=== PATIENT | female | born 1945 | race Caucasian/White ===

== ENCOUNTER 2025-06-09 18:00 | Inpatient (IN) | payer MEDICARE, OTHER, SELFPAY ==
[2025-06-09 09:56] VITALS: BP 160/77
[2025-06-09 11:12] LABS: Hematocrit 36.1 % (37.0-47.0); Hemoglobin 12.0 g/dL (12.0-16.0); Mean Corp Hgb Conc. 33.2 g/dL (33.0-37.0); Mean Corpuscular Volume 92.1 fL (81.0-99.0); Nucleated Red Blood Cells % 0 %; Red Cell Dist. Width 12.6 % (11.5-14.5)
[2025-06-09 11:31] LABS: ALT (SGPT) 22 U/L (0-35); AST (SGOT) 28 U/L (14-36); Albumin 4.3 g/dl (3.5-5.0); Alkaline Phosphatase 82 U/L (38-126); Blood Urea Nitrogen 22 mg/dl (7-17); Calcium 9.4 mg/dl (8.4-10.2); Carbon Dioxide 27 mmol/L (22-30); Chloride 109 mmol/L (98-107); Glucose 104 mg/dl (70-99); Lipase 71 U/L (23-300); Potassium 4.5 mmol/L (3.5-5.1); Sodium 142 mmol/L (135-145); Total Protein 7.2 g/dl (6.3-8.2); eGFR > 60.00
--- NOTE | 2025-06-09 11:36 | ED.GENMED ---
History of Present Illness
<Josh Vick PA-C - Last Filed: 06/09/25 16:12>
General
Chief Complaint: Abdominal Pain
Time Seen by Provider: 06/09/25 11:19
History of Present Illness
History of Present Illness:
71-year-old female with history of hypertension and hyperlipidemia presents for evaluation of upper abdominal pain and acid reflux that has been ongoing for the past 3 weeks. States she began taking Pepcid and had difficulty falling asleep when
lying flat. Followed up with her primary care physician was placed on omeprazole last week without improvement. Had an ultrasound completed 2 days ago that showed numerous lesions on her liver and pancreas concerning for metastatic disease and a
CT scan was recommended. She has not reviewed the CT results with her primary care physician yet to decide what to do. Denies any fevers or chills. Prior abdominal surgical history includes partial hysterectomy and ovarian cystectomy. Pain is
minimal at present.
Review of Systems
<Josh Vick PA-C - Last Filed: 06/09/25 16:12>
Review of Systems
Allergies reviewed?: Yes
All Other Systems: ROS reviewed and negative except as documented in HPI and ROS
Phy Exam
<Josh Vick PA-C - Last Filed: 06/09/25 16:12>
Physical Exam
Physical Exam:
GEN: Well appearing, NAD, WDWN
HEENT: Oral mucosa moist, no scleral icterus
Cardiac: Regular rate
Lung: No respiratory distress, no tachypnea
Abdomen: Soft, grossly nontender, no palpable mass
MSK: No gross deformity or injuries
Skin: Good color, no pallor or jaundice, no rashes
Neuro: AO x3, moves all extremities freely
Psych: Calm, cooperative
Course
<Josh Vick PA-C - Last Filed: 06/09/25 16:12>
Orders/Labs/Results
Orders:
Orders
06/09/25 10:56
Complete Blood Count/With Diff Urgent
Comprehensive Metabolic Panel Urgent
Lipase Urgent
06/09/25 11:23
Urinalysis Reflex To Culture Urgent
Date Specimen was Collected: 06/09/25
Time Specimen was Collected: 11:20
Urine Microscopic Reflex Cult Urgent
Urine Culture Urgent
BRANDO Source: U
Specimen Description:
Obtained by: Random
Date Specimen was Collected: 06/09/25
Time Specimen was Collected: 11:20
06/09/25 11:37
CT Abd/Pel (IV only)-DH only Urgent
Comment:
Reason For Exam: upper abd pain, pancreatic/hepatic masses on US
06/09/25 14:39
Admit Patient As Directed
Co-Sign Provider:
Level of Care: Inpatient admission
Assign to:: Medical/Surgical
Physician / Group: Hospital medicine
Diagnosis: Pancreatic mass, and splenic vein occlusion
Reason for Hospitalization: Pancreatic mass
Expected length of stay greater than two midnights?: Yes
ELOS- Estimated Length of Stay in days: 2
I certify the patient meets the requirements for IP care: Yes
Reason for Overnight Stay: Standard of Care
06/09/25 14:42
PRN Pain Medication Management As Directed
May give lesser potent ordered pain med per pt: Yes
preference::
Protocol:: Medication orders for pain may be administered in a
manner that supports deferring to patient preference
when the pt is:
- Requesting an ordered lesser potent pain medication.
Least to most potent pain medications are defined
as: acetaminophen < NSAID < tramadol < opioids
(morphine, oxycodone, hydromorphone).
- Requesting a lesser dose of the same medication IF
ORDERED.
- Requesting a less intrusive route of administration
if both routes are prescribed by the provider (PO <
IV).
06/09/25 14:52
GASTROINTESTINAL CONSULT Routine
Consulting Provider: Sherry Villa
Was physician already notified: Yes
Reason for consult: Pancreatic mass
DX Deep Vein Thrombosis Video Routine
06/09/25 Dinner
Regular
Metoprolol Xl [Toprol Xl] 25 mg PO DAILY
06/09/25 15:05
DX Deep Vein Thrombosis Video Routine
06/09/25 15:09
Admit/Transfer Patient As Directed
Co-Sign Provider:
Level of Care: Inpatient admission
Assign to:: Medical/Surgical
Physician / Group: Hospital medicine
Diagnosis: Pancreatic mass, and splenic vein occlusion
Reason for Hospitalization: Pancreatic mass work up
Expected length of stay greater than two midnights?: Yes
ELOS- Estimated Length of Stay in days: 3
I certify the patient meets the requirements for IP care: Yes
Reason for Overnight Stay: Standard of Care
06/09/25 15:10
PRN Pain Medication Management As Directed
May give lesser potent ordered pain med per pt: Yes
preference::
Protocol:: Medication orders for pain may be administered in a
manner that supports deferring to patient preference
when the pt is:
- Requesting an ordered lesser potent pain medication.
Least to most potent pain medications are defined
as: acetaminophen < NSAID < tramadol < opioids
(morphine, oxycodone, hydromorphone).
- Requesting a lesser dose of the same medication IF
ORDERED.
- Requesting a less intrusive route of administration
if both routes are prescribed by the provider (PO <
IV).
06/09/25 16:00
Flush (0.9% Sodium Chloride) [Flush (Nss)] See Dose Instructions IV PER PROTOCOL
06/09/25 18:00
Atorvastatin [Lipitor] 20 mg PO QPM
06/09/25 20:00
Heparin 5,000 units SC Q12
Valsartan [Diovan] 80 mg PO BID
06/09/25 22:00
Latanoprost [Xalatan Ophthalmic Solution] 1 drop BOTH EYES HS
06/10/25 08:00
Pantoprazole [Protonix] 40 mg PO DAILY
Abnormal Lab Results
06/09/25 06/09/25
10:56 11:23
RBC 3.92 L 10^6/uL
(4.20-5.40)
Hct 36.1 L %
(37.0-47.0)
Plt Count 93 L 10^3/uL
(130-400)
MPV 12.1 H fL
(7.4-10.4)
Absolute Lymphs (auto) 0.9 L 10^3/uL
(1.2-3.4)
Lymphocytes % 17.6 L %
(20.5-51.1)
Chloride 109 H mmol/L
(98-107)
BUN 22 H mg/dl
(7-17)
Glucose 104 H mg/dl
(70-99)
Urine Ketones 1+ A
(Negative)
Leukocyte Esterase Rfl 1+ A
(Negative)
Urine Bacteria (Reflex) Few A
(Negative)
06/09/25 10:56
06/09/25 10:56
Vital Signs
Initial and Last Documented VS:
Initial Vital Signs
Temp Pulse Resp BP Pulse Ox
98.6 F 85 16 160/77 100
06/09/25 09:56 06/09/25 09:56 06/09/25 09:56 06/09/25 09:56 06/09/25 09:56
Last Documented Vital Signs
Temp Pulse Resp BP Pulse Ox
98.6 F 88 18 155/72 99
06/09/25 09:56 06/09/25 12:22 06/09/25 12:22 06/09/25 12:22 06/09/25 12:22
<Armani Rae, DO - Last Filed: 06/09/25 14:51>
Orders/Labs/Results
Orders:
Orders
06/09/25 10:56
Complete Blood Count/With Diff Urgent
Comprehensive Metabolic Panel Urgent
Lipase Urgent
06/09/25 11:23
Urinalysis Reflex To Culture Urgent
Date Specimen was Collected: 06/09/25
Time Specimen was Collected: 11:20
Urine Microscopic Reflex Cult Urgent
Urine Culture Urgent
BRANDO Source: U
Specimen Description:
Obtained by: Random
Date Specimen was Collected: 06/09/25
Time Specimen was Collected: 11:20
06/09/25 11:37
CT Abd/Pel (IV only)-DH only Urgent
Comment:
Reason For Exam: upper abd pain, pancreatic/hepatic masses on US
06/09/25 14:39
Admit Patient As Directed
Co-Sign Provider:
Level of Care: Inpatient admission
Assign to:: Medical/Surgical
Physician / Group: Hospital medicine
Diagnosis: Pancreatic mass, and splenic vein occlusion
Reason for Hospitalization: Pancreatic mass
Expected length of stay greater than two midnights?: Yes
ELOS- Estimated Length of Stay in days: 2
I certify the patient meets the requirements for IP care: Yes
Reason for Overnight Stay: Standard of Care
06/09/25 14:42
PRN Pain Medication Management As Directed
May give lesser potent ordered pain med per pt: Yes
preference::
Protocol:: Medication orders for pain may be administered in a
manner that supports deferring to patient preference
when the pt is:
- Requesting an ordered lesser potent pain medication.
Least to most potent pain medications are defined
as: acetaminophen < NSAID < tramadol < opioids
(morphine, oxycodone, hydromorphone).
- Requesting a lesser dose of the same medication IF
ORDERED.
- Requesting a less intrusive route of administration
if both routes are prescribed by the provider (PO <
IV).
06/09/25 14:52
GASTROINTESTINAL CONSULT Routine
Consulting Provider: Sherry Villa
Was physician already notified: Yes
Reason for consult: Pancreatic mass
DX Deep Vein Thrombosis Video Routine
06/09/25 Dinner
Regular
Metoprolol Xl [Toprol Xl] 25 mg PO DAILY
06/09/25 15:05
DX Deep Vein Thrombosis Video Routine
06/09/25 15:09
Admit/Transfer Patient As Directed
Co-Sign Provider:
Level of Care: Inpatient admission
Assign to:: Medical/Surgical
Physician / Group: Hospital medicine
Diagnosis: Pancreatic mass, and splenic vein occlusion
Reason for Hospitalization: Pancreatic mass work up
Expected length of stay greater than two midnights?: Yes
ELOS- Estimated Length of Stay in days: 3
I certify the patient meets the requirements for IP care: Yes
Reason for Overnight Stay: Standard of Care
06/09/25 15:10
PRN Pain Medication Management As Directed
May give lesser potent ordered pain med per pt: Yes
preference::
Protocol:: Medication orders for pain may be administered in a
manner that supports deferring to patient preference
when the pt is:
- Requesting an ordered lesser potent pain medication.
Least to most potent pain medications are defined
as: acetaminophen < NSAID < tramadol < opioids
(morphine, oxycodone, hydromorphone).
- Requesting a lesser dose of the same medication IF
ORDERED.
- Requesting a less intrusive route of administration
if both routes are prescribed by the provider (PO <
IV).
06/09/25 16:00
Flush (0.9% Sodium Chloride) [Flush (Nss)] See Dose Instructions IV PER PROTOCOL
06/09/25 18:00
Atorvastatin [Lipitor] 20 mg PO QPM
06/09/25 20:00
Heparin 5,000 units SC Q12
Valsartan [Diovan] 80 mg PO BID
06/09/25 22:00
Latanoprost [Xalatan Ophthalmic Solution] 1 drop BOTH EYES HS
06/10/25 08:00
Pantoprazole [Protonix] 40 mg PO DAILY
Abnormal Lab Results
06/09/25 06/09/25
10:56 11:23
RBC 3.92 L 10^6/uL
(4.20-5.40)
Hct 36.1 L %
(37.0-47.0)
Plt Count 93 L 10^3/uL
(130-400)
MPV 12.1 H fL
(7.4-10.4)
Absolute Lymphs (auto) 0.9 L 10^3/uL
(1.2-3.4)
Lymphocytes % 17.6 L %
(20.5-51.1)
Chloride 109 H mmol/L
(98-107)
BUN 22 H mg/dl
(7-17)
Glucose 104 H mg/dl
(70-99)
Urine Ketones 1+ A
(Negative)
Leukocyte Esterase Rfl 1+ A
(Negative)
Urine Bacteria (Reflex) Few A
(Negative)
06/09/25 10:56
06/09/25 10:56
Vital Signs
Initial and Last Documented VS:
Initial Vital Signs
Temp Pulse Resp BP Pulse Ox
98.6 F 85 16 160/77 100
06/09/25 09:56 06/09/25 09:56 06/09/25 09:56 06/09/25 09:56 06/09/25 09:56
Last Documented Vital Signs
Temp Pulse Resp BP Pulse Ox
98.6 F 88 18 155/72 99
06/09/25 09:56 06/09/25 12:22 06/09/25 12:22 06/09/25 12:22 06/09/25 12:22
<Josh Vick PA-C - Last Filed: 06/09/25 16:12>
MDM/Problems Addressed
MDM/Problems Addressed:
Unclear etiology to the patient's pain at this time however unfortunately imaging reveals findings highly suspicious for pancreatic malignancy. Will admit her to the medicine service for GI consultation and further diagnostic workup
<Josh Vick PA-C - Last Filed: 06/09/25 16:12>
*Pulse Oximetry
SaO2: 100
Oxygen Mode of Delivery: Room air
Patient hypoxic: no
*Critical Care Note
Total Time (30-74mins, 75-104mins- exclusive of procedures): Not Applicable
ED Attending Note
<Josh Vick PA-C - Last Filed: 06/09/25 16:12>
-
Portions of this chart may have been created with voice recognition software.� Occasional wrong word or��sound alike� substitutions may have occurred due to the inherent limitations of voice recognition software.
<Armani Rae DO - Last Filed: 06/09/25 14:51>
ED Attending Note
Patient seen and examined by attending physician: Yes
I performed the substantive portion of visit, reviewed & personally made and approve the management plan that is documented in note by myself or LINA.: Yes
ED Attending Note:
Seen with PA examined independently agree with assessment and plan 79-year-old female with dyspepsia seen by PCP had increased dose of her PPI, ultrasound showed a likely pancreatic mass, patient has been unable to get a hold of her PCP or the
covering physicians, to get a plan of care thus she came to the ER here she looks well she does not have any jaundice minimal pain, I agree with plan to admit her for facilitated workup
Discharge Plan
Departure
Patient Disposition: Admit
Date of Disposition: 06/09/25
Time of Disposition: 13:31
Admit to: Med/Surg
Presentation/result/management discussed w/ accepting MD/DO: Hospitalist
Discharge Problem:
Mass of pancreas
Prescriptions:
No Action
latanoprost 0.005 % Drops
1 drp BOTH EYES HS
atorvastatin [Lipitor] 20 mg Tablet
20 mg PO QPM
omeprazole 40 mg Capsule,Delayed Release(Dr/Ec)
40 mg PO DAILY
metoprolol succinate [Toprol XL] 25 mg Tablet Extended Release 24 Hr
25 mg PO DAILY
valsartan 160 mg Tablet
80 mg PO BID
Centrum MultiGummies 80 mcg Tablet,Chewable
1 tab PO DAILY
Referrals:
Shelton Bentley MD [Family Provider, Family Practice]
Interventions
Interventions:
*Risk Screen - Suicide Last Done: 06/09/25 09:56
*General Assessment Last Done: 06/09/25 09:56
*Neglect/Abuse Screening Last Done: 06/09/25 11:51
YJ-Oultec-Kknfgvklrg Assessment Last Done: 06/09/25 11:49
Discharge Date and Time
Print Language: BURUNDIAN
[2025-06-09 12:22] VITALS: BP 155/72
[2025-06-09 12:28] LABS: Urine Character Clear (Clear)
[2025-06-09 12:40] LABS: Urine Squamous Cell 16-20 /LPF (Few)
[2025-06-09 12:41] LABS: Urine Red Blood Cell 0-2 /HPF (0-2)
[2025-06-09 13:15] LABS: Platelet Count 93 10^3/uL (130-400)
--- NOTE | 2025-06-09 14:54 | HPS.HSE ---
Addendum entered and electronically signed by Ovi Harp MD 06/09/25 15:44:
This is an addendum to H&P written by Maranda Montemayor on 06/09/2025. �Patient seen and examined independently with resident.
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 �Difficulty falling asleep and lying flat. �Started omeprazole without improvement.
�An ultrasound 2 days ago showed numerous lesions of the liver and pancreas concerning for metastatic disease and CT scan was recommended. �No fevers or chills.
Vital signs unremarkable.
Labs unremarkable. �Urinalysis unremarkable.
CT abdomen pelvis shows 3 cm mass in the body of the pancreas, highly suspicious for pancreatic adenocarcinoma. �Severe atrophy and main ductal dilatation of the pancreas distal to the mass. �Occlusion of the proximal splenic vein narrowing of the
superior mesenteric vein at the level of the mass. �Also concerning for liver metastasis.
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
N.p.o. Past midnight for potential endoscopic US and biopsy.� Heparin for DVT prophylaxis, will likely need to start Eliquis after endoscopy.�
Original Note:
Family Physician
-
Family Physician: Shelton Bentley
Chief Complaint
-
Intermittent abdominal pain
History of Present Illness
71-year-old female with PMHx significant for hypertension, glaucoma, hyperlipidemia presents to the hospital for intermittent abdominal pain and acid reflux for the past 3 weeks. Patient states that about 3 weeks ago she started having sour
metallic taste into the mouth after eating food, along with food refluxing into her mouth several times immediately after eating her meals, and bloating, burning sensation in her epigastrium with associated epigastric discomfort for the last 3
weeks. As her primary care physician was out, she tried to take [id number] Pepcid with no relief in the symptoms. Her epigastric discomfort was intermittent, nonradiating, dull, worsened when she lie down flat, she has to find a comfortable
position to sleep but then she would wake up in the middle of the night from her epigastric discomfort. About 1 week ago, she went to see her primary care physician who prescribed omeprazole, and her symptoms did not improve with omeprazole. So
she went for a follow-up on Saturday, and an ultrasound was ordered which showed evidence for liver metastasis. Patient brought herself into the ER as she has not reviewed her results with PCP yet.
She denies having any nausea, vomiting, diarrhea, constipation, fresh blood in the stool.
She admits to having bloating and belching in her stomach.
Medical History
Past Medical History
Past Medical History: Reports Other (Hypertension, hyperlipidemia, glaucoma.)
Past Surgical History: Reports Other (C-sections x 2, total abdominal hysterectomy.)
Social History
Tobacco: Non-smoker
Alcohol: None
Drug: None
Personal:
Living: With Family
Employment: Retired
Family History
Family History: Other (Brother with pancreatic cancer.)
Allergies / Home Medications
Allergies reflects when Allergies were last updated in [facility] [employer] [facility].
Home Medications with original date entered in [employer] [facility]
Allergy/Medication List:
Allergies
Allergy/AdvReac Type Severity Reaction Status Date / Time
Penicillins Allergy reaction Verified 06/09/25 09:56
when young
Home Medications
atorvastatin 20 mg tablet (Lipitor) 20 mg PO QPM 06/09/25
latanoprost 0.005 % eye drops 1 drp BOTH EYES HS 06/09/25
metoprolol succinate 25 mg tablet,extended release 24 hr (Toprol XL) 25 mg PO DAILY 06/09/25
multivitamin with minerals-folic acid 80 mcg chewable tablet 1 tab PO DAILY 06/09/25
omeprazole 40 mg capsule,delayed release 40 mg PO DAILY 06/09/25
valsartan 160 mg tablet 80 mg PO BID 06/09/25
Review of Systems
-
History Source: Patient
A 12 point ROS was completed and negative except as noted: No
Constitutional: Reports Fatigue
EENT: Reports No Symptoms
Respiratory: Reports No Symptoms
Cardiac: Reports No Symptoms
Abdomen/GI: Reports Abdominal Pain and Other (Acid reflux, bloating.)
: Reports No Symptoms
Musculoskeletal: Reports No Symptoms
Skin: Reports No Symptoms
Neurological: Reports No Symptoms
Endocrine: Reports No Symptoms
Hematologic/Lymphatic: Reports No Symptoms
Psych: Reports No Symptoms
Physical Exam
Vital Signs
Vital Signs
Temp Pulse Resp BP Pulse Ox
98.6 F 88 18 155/72 99
06/09/25 09:56 06/09/25 12:22 06/09/25 12:22 06/09/25 12:22 06/09/25 12:22
Physical Exam
General: No Apparent Distress and Comfortable
HEENT: Anicteric and Moist mucous membranes
Respiratory: Clear; No Wheezes, Rales, Rhonchi or Crackles
Cardiac: S1/S2 and Regular Rhythm; No Murmur, Rub or Gallop
GI: Soft, Non Tender, Non Distended, Normal Bowel Sounds and No Hepatosplenomegaly
Genito-urinary: Deferred by me
Musculoskeletal: No Clubbing, No Cyanosis and No Edema
Skin: Warm
Neuro: AO x 3 and No Motor Deficits
Psych: Calm
Laboratory Results
-
06/09/25 10:56
06/09/25 10:56
Laboratory Results
Total Bilirubin 0.9 mg/dl (0.2-1.3) 06/09/25 10:56
AST 28 U/L (14-36) 06/09/25 10:56
ALT 22 U/L (0-35) 06/09/25 10:56
Alkaline Phosphatase 82 U/L (38-126) 06/09/25 10:56
Lipase 71 U/L (23-300) 06/09/25 10:56
Data Reviewed
-
CT Scan: Image Personally Visualized and interpreted, Report Reviewed by me, Discussed with Physician, Discussed with Patient and Discussed with Family
Lab Data: Labs Reviewed by me, Discussed with Physician, Discussed with Patient and Discussed with Family
Impression/Plan
-
IMPRESSION:
79-year-old female with PMHx significant for hypertension, hyperlipidemia, glaucoma presents to the hospital for intermittent abdominal pain-diagnosed with a pancreatic mass highly suspicious for pancreatic adenocarcinoma with liver metastasis. She
is being admitted for further workup.
PLAN:
# Pancreatic mass-
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
'CT abdomen/pelvis with IV contrast- 3 cm mass in the body of the pancreas, highly suspicious for pancreatic adenocarcinoma. Severe atrophy and main ductal dilatation in the pancreas distal to the mass. Occlusion of the proximal splenic vein and
narrowing of the superior mesenteric vein at the level of the mass.
At least four hypoattenuating hepatic foci likely represent hepatic metastases'.
GI consulted, on board.
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
Currently patient asymptomatic, no focal weakness or syncopal episodes.
Defer to GI for anticoagulation.
#Essential hypertension-
Continue Toprol-XL and valsartan 80 twice daily
#Hyperlipidemia-
Continue atorvastatin.
#Glaucoma-
Continue latanoprost.
#DVT prophylaxis-
Heparin subcu.
#CODE STATUS-
Full code.
[2025-06-09] MEDS: TOPROL XL 25 MG PO (16:37)
[2025-06-09 16:55] VITALS: BP 145/71
[2025-06-09 18:02] VITALS: BP 164/84
[2025-06-09] MEDS: LIPITOR 20 MG PO (18:09)
[2025-06-09 18:34] VITALS: BMI 25.4
--- NOTE | 2025-06-09 19:28 | PTCARENOTE ---
received pt to 3W from ED approx 1800. VS obtained, oriented to room, nursing assessment complete, call larkin within reach, no c/o pain, bed in lowest position
[2025-06-09] MEDS: HEPARIN 5000 UNITS SC (20:23)
[2025-06-09] MEDS: DIOVAN 80 MG PO (20:23)
--- NOTE | 2025-06-09 20:34 | PTCARENOTE ---
Rn review coordinator-Admission nursing assessment conpleted via phone interview.
[2025-06-09] MEDS: XALATAN OPHTHALMIC SOLUTION 1 DROP BOTH EYES (22:59)
[2025-06-09 23:17] VITALS: BP 145/72
[2025-06-10] VITALS (9 sets, daily range): BP systolic 76–171; BP diastolic 64–82
[2025-06-10] MEDS: PROTONIX 40 MG PO (07:42)
[2025-06-10] MEDS: HEPARIN 5000 UNITS SC ×2 (07:42→20:10)
[2025-06-10] MEDS: TOPROL XL 25 MG PO (07:43)
[2025-06-10] MEDS: DIOVAN 80 MG PO ×2 (07:45→20:05)
--- NOTE | 2025-06-10 08:40 | W.PN.UPDATE ---
Update Note
Progress Note Update
reviewed imaging with Dr. aKy with no signs of biliary obstruction and panc body mass consider IR and oncology evaluation for liver biopsy. Reviewed with .
[2025-06-10 10:08] LABS: INR 0.95; PT 13.1 Sec (11.4-14.6)
--- NOTE | 2025-06-10 10:09 | CON.ONC ---
Consultation
-
Date Consultation Requested: 06/10/25
Date Consultation Performed: 06/10/25
Performing Provider: Dr. Alex Garcia
Reason for Consultation: CT showing mass in body of pancreas and liver lesions
Impression
Impression
# Pancreatic mass -likely to be pancreatic adenocarcinoma
# Liver lesions
CT abdomen/pelvis: 3 cm mass in the body of pancreas, highly suspicious for pancreatic adenocarcinoma. Severe atrophy and main ductal dilatation of the pancreas distal to the mass. 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
superior mesenteric vein at the level of the mass. At least 4 hypoattenuating hepatic foci likely representing hepatic metastasis.
- Will order CA 19-9
- Patient does not have weight loss or decreased appetite, suspect atypical pancreatic cancer.
- Recommend liver biopsy to confirm diagnosis of metastatic cancer.
- May benefit from outpatient genetic testing of BRCA2 mutation given history of pancreatic cancer in brother.
- Recommend outpatient PET scan.
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
Plan
Plan
Ca 19-9
Liver biopsy to confirm diagnosis of metastatic pancreatic cancer
Outpatient PET, and genetic testing for BRCA2 mutation given history of pancreatic ca in brother
Patient History
History of Present Illness
Patient is a 71-year-old female with a past medical history of hypertension, hyperlipidemia who presented to the ED after abnormal imaging results. Patient had been having intermittent, dull epigastric pain that radiates to the back for the past 3
weeks with associated acid reflux, bloating, belching, and sour metallic taste in the mouth. Patient tried taking [id number] Pepcid with no relief of symptoms, and eventually was prescribed omeprazole which also did not provide relief. Her
outpatient ultrasound showed evidence for liver metastasis, which prompted the ER visit. Patient denies nausea, vomiting, diarrhea, constipation, weight loss and decreased appetite.
Past-Medical/Surgical History
Family history significant for pancreatic cancer in brother.
Patient Medication
�Medication �Instructions �Recorded �Confirmed �Last Taken �Type
atorvastatin 20 mg tablet (Lipitor) 20 mg PO QPM 06/09/25 06/09/25 06/08/25 History
latanoprost 0.005 % eye drops 1 drp BOTH EYES HS 06/09/25 06/09/25 06/08/25 History
metoprolol succinate 25 mg 25 mg PO DAILY 06/09/25 06/09/25 06/08/25 History
tablet,extended release 24 hr
(Toprol XL)
multivitamin with minerals-folic 1 tab PO DAILY 06/09/25 06/09/25 06/08/25 History
acid 80 mcg chewable tablet
omeprazole 40 mg capsule,delayed 40 mg PO DAILY 06/09/25 06/09/25 06/08/25 History
release
valsartan 160 mg tablet 80 mg PO BID 06/09/25 06/09/25 06/08/25 History
Active Medications
Generic Name Dose Route Start Last Admin
Trade Name Freq PRN Reason Stop Dose Admin
Atorvastatin Calcium 20 mg 06/09/25 18:00 06/09/25 18:09
Atorvastatin (Lipitor) 20 Mg Tablet PO 07/07/25 17:59 20 mg
QPM MIGUEL Administration
Heparin Sodium 5,000 units 06/09/25 20:00 06/10/25 07:42
Heparin 5,000 Units/Ml 1 Ml Vial SC 07/07/25 19:59 5,000 units
Q12 MIGUEL Administration
Latanoprost 1 drop 06/09/25 22:00 06/09/25 22:59
Latanoprost 0.005% (Ophthalmic Solution) 2.5 Ml Bottle BOTH EYES 07/07/25 21:59 1 drop
HS MIGUEL Administration
Metoprolol Succinate 25 mg 06/09/25 15:00 06/10/25 07:43
Metoprolol 25 Mg Extended Release Tablet PO 07/07/25 14:59 25 mg
DAILY MIGUEL Administration
Pantoprazole Sodium 40 mg 06/10/25 08:00 06/10/25 07:42
Pantoprazole 40 Mg Delayed Release Tablet PO 07/08/25 07:59 40 mg
DAILY MIGUEL Administration
Sodium Chloride 0 flush 06/09/25 16:00
Sodium Chloride 0.9% (Flush) Syringe IV 07/07/25 15:59
PER PROTOCOL MIGUEL
Valsartan 80 mg 06/09/25 20:00 06/10/25 07:45
Valsartan 160 Mg Tablet PO 07/07/25 19:59 80 mg
BID MIGUEL Administration
Review of Systems
-
History Source: Patient
Constitutional: Reports No Symptoms
EENT: Reports No Symptoms
Respiratory: Reports No Symptoms
Cardiac: Reports No Symptoms
GI: Reports Abdominal Pain, Bloated and Indigestion
Breast: Reports No Symptoms
: Reports No Symptoms
Musculoskeletal: Reports No Symptoms
Neuro: Reports No Symptoms
Endocrine: Reports No Symptoms
Hematologic/Lymphatic: Reports No Symptoms
Allergy / Immunology: Reports No Symptoms
Psych: Reports No Symptoms
Physical Exam
-
General: Well Developed, Well Nourished, No Apparent Distress, Comfortable and Conversant
HEENT: Jaundice and Moist Mucous Membranes
Pulmonary: Clear
GI: Soft, Normal Bowel Sounds and No Organomegaly
Musculoskeletal: No Clubbing and No Cyanosis
Skin: Warm
Psych: Calm
Labs
Lab Results
WBC 5.2 10^3/uL (4.8-10.8) 06/09/25 10:56
RBC 3.92 10^6/uL (4.20-5.40) L 06/09/25 10:56
Hgb 12.0 g/dL (12.0-16.0) 06/09/25 10:56
Hct 36.1 % (37.0-47.0) L 06/09/25 10:56
MCV 92.1 fL (81.0-99.0) 06/09/25 10:56
MCH 30.6 pg (27.0-31.0) 06/09/25 10:56
MCHC 33.2 g/dL (33.0-37.0) 06/09/25 10:56
RDW 12.6 % (11.5-14.5) 06/09/25 10:56
Plt Count 93 10^3/uL (130-400) L 06/09/25 10:56
MPV 12.1 fL (7.4-10.4) H 06/09/25 10:56
Abs Immat Gran (auto) 0.0 10^3/uL (0-0.05) 06/09/25 10:56
Absolute Neuts (auto) 3.8 10^3/uL (1.4-6.5) 06/09/25 10:56
Absolute Lymphs (auto) 0.9 10^3/uL (1.2-3.4) L 06/09/25 10:56
Absolute Monos (auto) 0.4 10^3/uL (0.1-0.6) 06/09/25 10:56
Absolute Eos (auto) 0.0 10^3/uL (0-0.7) 06/09/25 10:56
Absolute Basos (auto) 0.0 10^3/uL (0-0.2) 06/09/25 10:56
Immature Gran % 0.2 % (0-0.5) 06/09/25 10:56
Neutrophils % 73.3 % (42.2-75.2) 06/09/25 10:56
Lymphocytes % 17.6 % (20.5-51.1) L 06/09/25 10:56
Monocytes % 7.5 % (1.7-9.3) 06/09/25 10:56
Eosinophils % 0.8 % (0-6) 06/09/25 10:56
Basophils % 0.6 % (0-2) 06/09/25 10:56
Creatinine Cancelled 06/10/25 18:00
Vital Signs
Vital Signs
Temp Pulse Resp BP Pulse Ox
98.4 F 68 16 133/71 98
06/10/25 07:00 06/10/25 07:00 06/10/25 07:00 06/10/25 07:00 06/10/25 07:00
--- NOTE | 2025-06-10 10:38 | W.PN.HOSP.TC ---
Today's Communication/Plan
-
IR liver biopsy. Oncology eval
Assessment / Plan
Assessment / Plan
Physical exam:
General: Acute on chronically ill
HEENT: Normocephalic, Atraumatic and Moist Mucous Membranes
Respiratory: Clear to Auscultation; Negative Wheezes, Rales or Rhonchi
Cardiac: Regular Rhythm and S1/S2
GI: Soft, Nontender and Nondistended
Musculoskeletal: No Clubbing, No Cyanosis and No Edema
Neuro: Awake, Alert and Oriented, no neurodeficit
Psych: Calm
A/P:
Pancreatic mass:
Likely malignancy, suspected metastatic pancreatic adenocarcinoma
Cancel GI consult since no evidence of biliary tree obstruction
Oncology consult
Liver masses:
Likely metastatic disease
IR consult for biopsy
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
No need for anticoagulation at the moment
I also reached out to vascular surgery and there is no role for them to be involved.
Hypertension:
Continue antihypertensive
Hyperlipidemia:
Continue statin
DVT prophylaxis-
Heparin subcu.
CODE STATUS-
Full code.
Total time spent on today's encounter was 55 minutes which included time spent in counseling the patient/family regarding diagnosis and treatment plan as listed above, goals of care, and symptom management. Case was discussed with nursing staff,
specialists, and care coordinators/case management. All labs and imaging personally reviewed by me. Remainder the time spent in detailed review of previous records, lab data, imaging, and other medical provider documentation.
Anticipated Discharge: Within 24 hours
Subjective/Interval History
-
Date of Service: June 10, 2025
Patient complains of abdominal pain on and off. No fever. No chest pain or shortness of breath today
Objective Data
-
Labs:
Laboratory Results
06/10/25 06/10/25
09:41 18:00
PT 13.1
INR 0.95
Sodium Cancelled
Potassium Cancelled
Chloride Cancelled
Carbon Dioxide Cancelled
BUN Cancelled
Creatinine Cancelled
Glucose Cancelled
Calcium Cancelled
Vital Signs:
Vital Signs
Temp Pulse Resp BP Pulse Ox
98.4 F 68 16 133/71 98
06/10/25 07:00 06/10/25 07:00 06/10/25 07:00 06/10/25 07:00 06/10/25 07:00
--- NOTE | 2025-06-10 11:50 | CM ---
Patient seen at bedside
IA completed
dx: pancreatic mass
past medical history of hypertension, hyperlipidemia
Lives in a split level home with and son, 1 JONATHAN, 7 steps to bed/bath
PLOF: independent, no device
DME in home: Walker, cane, wheelchair, shower chair
Denies VN/Rehab
PCP: Shelton Bentley
Pharmacy: [facility]
PLAN: home, no needs anticipated when stable, CM to continue to follow for discharge planning/needs
[2025-06-10] MEDS: LIPITOR 20 MG PO (17:26)
[2025-06-10] MEDS: XALATAN OPHTHALMIC SOLUTION 1 DROP BOTH EYES (21:55)
[2025-06-11 07:00] VITALS: BP 145/76
[2025-06-11 07:11] LABS: Hematocrit 34.1 % (37.0-47.0); Hemoglobin 11.4 g/dL (12.0-16.0); Mean Corp Hgb Conc. 33.4 g/dL (33.0-37.0); Mean Corpuscular Volume 90.9 fL (81.0-99.0); Platelet Count 73 10^3/uL (130-400); Red Cell Dist. Width 12.4 % (11.5-14.5)
[2025-06-11 07:40] LABS: Blood Urea Nitrogen 29 mg/dl (7-17); Calcium 8.9 mg/dl (8.4-10.2); Carbon Dioxide 24 mmol/L (22-30); Chloride 109 mmol/L (98-107); Estimated Creatinine Clearance 44 ml/min; Glucose 87 mg/dl (70-99); Potassium 3.9 mmol/L (3.5-5.1); Sodium 140 mmol/L (135-145); eGFR > 60.00
[2025-06-11] MEDS: DIOVAN 80 MG PO (08:05)
[2025-06-11] MEDS: PROTONIX 40 MG PO (08:06)
[2025-06-11] MEDS: TOPROL XL 25 MG PO (08:06)
[2025-06-11] MEDS: HEPARIN 5000 UNITS SC (08:06)
--- NOTE | 2025-06-11 10:32 | W.PN.HOSP.TC ---
Today's Communication/Plan
-
Discharge planning today
Assessment / Plan
Assessment / Plan
Physical exam:
General: No acute distress
HEENT: Normocephalic, Atraumatic and Moist Mucous Membranes
Respiratory: Clear to Auscultation; Negative Wheezes, Rales or Rhonchi
Cardiac: Regular Rhythm and S1/S2
GI: Soft, Nontender and Nondistended
Musculoskeletal: No Clubbing, No Cyanosis and No Edema
Neuro: Awake, Alert and Oriented, no neuro-deficit
Psych: Calm
A/P:
Pancreatic mass:
Likely malignancy, suspected metastatic pancreatic adenocarcinoma
Cancel GI consult since no evidence of biliary tree obstruction
Oncology consult appreciated
Liver masses:
Likely metastatic disease
IR did biopsy yesterday on 06/10--> follow-up results as outpatient with oncology.
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
No need for anticoagulation at the moment
I also reached out to vascular surgery and there is no role for them to be involved.
Hypertension:
Continue antihypertensive
Hyperlipidemia:
Continue statin
DVT prophylaxis-
Heparin subcu.
CODE STATUS-
Full code.
Anticipated Discharge: Today
Subjective/Interval History
-
Date of Service: June 11, 2025
Patient doing well today
Objective Data
-
Labs:
Laboratory Results
06/11/25
06:42
WBC 4.5 L
Hgb 11.4 L
Hct 34.1 L
Plt Count 73 L D
Sodium 140
Potassium 3.9
Chloride 109 H
Carbon Dioxide 24
BUN 29 H
Creatinine 0.8
Glucose 87
Calcium 8.9
Vital Signs:
Vital Signs
Temp Pulse Resp BP Pulse Ox
97.4 F 68 16 145/76 100
06/11/25 07:00 06/11/25 08:05 06/11/25 07:00 06/11/25 08:05 06/11/25 07:00
I&O
06/10/25 06/11/25 06/12/25
06:59 06:59 06:59
Intake Total 580 / 580
Balance 580 / 580
--- NOTE | 2025-06-11 10:33 | W.DCSUMMARY ---
Discharge Summary
Discharge Data
Date of Admission: 06/09/25
Date of Discharge: 06/11/25
-
Pending Results: Yes (Liver biopsy.)
Hospital Course
Patient is 79 years old female with history of hypertension, hyperlipidemia, came into the hospital with abnormal imaging results and abdominal discomfort. Patient was found to have pancreatic mass and liver lesions. Oncology consulted. IR
consulted and she underwent liver biopsy. Patient doing well postprocedure. Patient will need to follow-up liver biopsy results as outpatient with oncology. Should biopsy come back positive for suspicion of pancreatic metastatic cancer then she
will require outpatient PET scan and genetic testing for BRCA2 mutation and so on. Otherwise, patient is hemodynamically stable and afebrile and she is going to be discharged in relatively stable condition today.
Discharge Plan
-
Patient Disposition: Home (Routine Discharge)
Discharge Diagnosis/Procedures: Pancreatic mass highly suspicious for metastatic pancreatic adenocarcinoma.
Diet: Low Cholesterol
Activity: As tolerated
Blood Work: Please PCP to order CBC, BMP within 1 week
Referrals:
Alex Garcia DO [Active, Hematology / Oncology] - in one to two weeks
Shelton Bentley MD [Family Provider, Family Practice] - in less than 1 week
Prescriptions:
Continued
latanoprost 0.005 % Drops
1 drp BOTH EYES HS
atorvastatin [Lipitor] 20 mg Tablet
20 mg PO QPM
omeprazole 40 mg Capsule,Delayed Release(Dr/Ec)
40 mg PO DAILY
metoprolol succinate [Toprol XL] 25 mg Tablet Extended Release 24 Hr
25 mg PO DAILY
valsartan 160 mg Tablet
80 mg PO BID
multivit with min-folic acid 80 mcg Tablet,Chewable
1 tab PO DAILY
Discharge Orders:
Discharge Patient (As Directed); Ordered 06/11/25
Ordered By: Michel Morel
Discharge Date and Time
Print Language: KHMER
[2025-06-11 11:42] VITALS: BP 147/70
--- NOTE | 2025-06-11 12:31 | CM ---
Patient seen at bedside
Discharge today
IMM explained & signed. In chart
PLAN: Home, no needs
to transport
[2025-06-11 22:32] LABS: CA 19-9 4 U/mL (<=35)
== END 2025-06-11 15:00 | disposition home or self-care (01) | DRG 436 ==
LOC: 3 WEST ACU 18:00
PROVIDERS: Emergency Medicine; Radiology Vascular & Interventional Radiology; ADMITTING PHYSICIAN Hospitalist; ATTENDING PHYSICIAN Hospitalist; CONSULT PHYSICIAN Internal Medicine Hematology & Oncology; EMERGENCY PHYSICIAN Emergency Medicine; FAMILY PHYSICIAN Family Medicine
PROC: 0FB13ZX Excision of Right Lobe Liver, Percutaneous Approach, Diagnostic (ICD-10-PCS; 2025-06-10)
DX: C25.9 Malignant neoplasm of pancreas, unspecified (principal); C78.7 Secondary malignant neoplasm of liver and intrahepatic bile duct; I10 Essential (primary) hypertension; E78.5 Hyperlipidemia, unspecified; K21.9 Gastro-esophageal reflux disease without esophagitis; H40.9 Unspecified glaucoma; Z79.899 Other long term (current) drug therapy; Z80.0 Family history of malignant neoplasm of digestive organs; Z90.711 Acquired absence of uterus with remaining cervical stump
CPT/HCPCS: 47000; 74177; 77012; 80048; 80053; 81003; 81015; 83690; 85025; 85027; 85610; 86301; 87086; 88307; 88333; 88341; 88342; 99152; 99153; 99285; Q9967

== ENCOUNTER → 2025-06-23 12:29 | Outpatient (REF) | payer MEDICARE, OTHER, SELFPAY ==
[2025-06-23 12:29] LABS: Glucose 103 mg/dl (70-99)
== END ==
LOC: PET 12:29
PROVIDERS: ATTENDING PHYSICIAN Internal Medicine Hematology & Oncology
DX: C25.2 Malignant neoplasm of tail of pancreas (principal); K86.9 Disease of pancreas, unspecified; K86.89 Other specified diseases of pancreas
CPT/HCPCS: 36415; 82947

== ENCOUNTER → 2025-07-05 12:07 | Outpatient (REF) | payer MEDICARE, OTHER, SELFPAY ==
[2025-07-05 12:20] LABS: Hematocrit 34.3 % (37.0-47.0); Hemoglobin 11.2 g/dL (12.0-16.0); Mean Corp Hgb Conc. 32.7 g/dL (33.0-37.0); Mean Corpuscular Volume 93.2 fL (81.0-99.0); Platelet Count 99 10^3/uL (130-400); Red Cell Dist. Width 12.6 % (11.5-14.5)
[2025-07-05 13:01] LABS: ALT (SGPT) 25 U/L (0-35); AST (SGOT) 27 U/L (14-36); Albumin 4.2 g/dl (3.5-5.0); Alkaline Phosphatase 79 U/L (38-126); Blood Urea Nitrogen 19 mg/dl (7-17); Calcium 9.5 mg/dl (8.4-10.2); Carbon Dioxide 27 mmol/L (22-30); Chloride 109 mmol/L (98-107); Glucose 111 mg/dl (70-99); Potassium 4.4 mmol/L (3.5-5.1); Sodium 143 mmol/L (135-145); Total Protein 7.2 g/dl (6.3-8.2); eGFR > 60.00
== END ==
LOC: OIDL 12:07
PROVIDERS: ATTENDING PHYSICIAN Internal Medicine Hematology & Oncology
DX: C25.2 Malignant neoplasm of tail of pancreas (principal); C78.7 Secondary malignant neoplasm of liver and intrahepatic bile duct; C25.0 Malignant neoplasm of head of pancreas
CPT/HCPCS: 80053; 85025

== ENCOUNTER → 2025-07-06 12:14 | Outpatient (REF) | payer MEDICARE, OTHER, SELFPAY ==
[2025-07-06 12:35] VITALS: BP 135/70; BP_SYST 74
[2025-07-06] MEDS: VANCOCIN 200 IV (13:15)
== END ==
LOC: RADI 12:14
PROVIDERS: ATTENDING PHYSICIAN Internal Medicine Hematology & Oncology; FAMILY PHYSICIAN Family Medicine
DX: C25.2 Malignant neoplasm of tail of pancreas (principal); C78.7 Secondary malignant neoplasm of liver and intrahepatic bile duct
CPT/HCPCS: 36561; 76937; 77001; 99152; 99153; C1788

== ENCOUNTER 2025-07-16 20:32 | Inpatient (IN) | payer MEDICARE, OTHER, SELFPAY ==
[2025-07-16 14:20] VITALS: BP 159/109
--- NOTE | 2025-07-16 15:45 | ED.GENMED ---
History of Present Illness
<Spring Beckett PA-C - Last Filed: 07/16/25 21:43>
General
Chief Complaint: Abdominal Symptoms
Source: patient
Exam Limitations: none
Time Seen by Provider: 07/16/25 15:31
History of Present Illness
History of Present Illness:
79yoF with a history of pancreatic cancer, hypertension, hyperlipidemia presenting for evaluation of diarrhea. Patient just started chemotherapy last week. She follows with Dr. Garcia at [place]. She was initially constipated and saw Dr. Garcia in
the office 2 days ago. She was advised to start MiraLAX. Before she was able to start this, she experienced cramping in her abdomen which was followed by a large amount of diarrhea. Diarrhea has continued since then. She states she is unable to
get to the bathroom fast enough and is going in her underwear. She is passing only a small amount of stool at a time. She has had about 4-5 episodes of diarrhea so far today. She reports continued cramping in her abdomen that worsens just before
a bowel movement. She called the oncology office and was told to go to the ED to obtain a CT scan for concern for possible blockage. She denies any vomiting or fevers. Only prior abdominal surgery is a partial hysterectomy.
Phy Exam
<Spring Beckett PA-C - Last Filed: 07/16/25 21:43>
General Physical Exam
General Presentation: well appearing and no apparent distress
General Skin: warm and dry
General Habitus: normal
General Mental: alert
ENT Exam
ENT Exam: normocephalic
Pulmonary Exam
Pulmonary Exam: no respiratory distress
Gastrointestinal Exam
Gastrointestinal Exam: soft, non distended and other (+Generalized abdominal tenderness. Abdomen soft, non-distended. No rebound or guarding.)
Neurological Exam
Neurological Exam: alert
[place] Coma Scale
Eye Opening: Spontaneous
Verbal Response: Oriented
Motor Response: Obeys Commands
GCS Total Score: 15
Skin Exam
Skin Exam: normal color and warm/dry
Psychiatric Exam
Psychiatric Exam: normal mood/affect
Course
<Spring Beckett PA-C - Last Filed: 07/16/25 21:43>
Orders/Labs/Results
Orders:
Orders
07/16/25 15:16
IV Insert/Care/Rem.- Treatment PRN
07/16/25 15:24
Complete Blood Count/With Diff Urgent
Comprehensive Metabolic Panel Urgent
Lipase Urgent
Magnesium Urgent
Comment: ADD ON
Manual Differential Urgent
07/16/25 15:43
Add On- LAB Urgent
Tests Added?: magnesium
0.9% Sodium Chloride 1000 ml [Nss] 1,000 ml IV BOLUS
Iohexol [Omnipaque] See Protocol PO NOW STA
07/16/25 15:44
CT Abd/pel W Iv And Oral Contr Urgent
Comment:
Reason For Exam: generalized abd pain, diarrhea
07/16/25 17:41
CDIFF [C difficile Antigen & Toxins] Urgent
BRANDO Source: Feces/Stool
Specimen Description:
Date Specimen was Collected: 07/16/25
Time Specimen was Collected: 16:53
Stool Culture Urgent
BRANDO Source: Feces/Stool
Specimen Description:
Date Specimen was Collected: 07/16/25
Time Specimen was Collected: 16:53
07/16/25 19:12
CefTRIAXone [Rocephin] 1,000 mg IV NOW STA
MetroNIDAZOLE 500 MG/100 ML [Flagyl 500 mg] 100 ml IV NOW
07/16/25 19:49
Admit/Transfer Patient As Directed
Co-Sign Provider:
Level of Care: Inpatient admission
Assign to:: Medical/Surgical
Physician / Group: aydee
Diagnosis: acute colitis
Reason for Hospitalization: acute colitis
Expected length of stay greater than two midnights?: Yes
ELOS- Estimated Length of Stay in days: 2
I certify the patient meets the requirements for IP care: Yes
Code Status As Directed
Resuscitation Status: Full Code
PRN Pain Medication Management As Directed
May give lesser potent ordered pain med per pt: Yes
preference::
Protocol:: Medication orders for pain may be administered in a
manner that supports deferring to patient preference
when the pt is:
- Requesting an ordered lesser potent pain medication.
Least to most potent pain medications are defined
as: acetaminophen < NSAID < tramadol < opioids
(morphine, oxycodone, hydromorphone).
- Requesting a lesser dose of the same medication IF
ORDERED.
- Requesting a less intrusive route of administration
if both routes are prescribed by the provider (PO <
IV).
07/16/25 19:51
C difficile Antigen & Toxins Urgent
BRANDO Source: Feces/Stool
Specimen Description:
Norovirus by PCR Urgent
BRANDO Source: Feces/Stool
Specimen Description:
07/16/25 21:10
Lactate Level [Lactic Acid] Urgent
07/16/25 21:30
Urinalysis Reflex To Culture Urgent
Date Specimen was Collected: 07/16/25
Time Specimen was Collected: 15:16
Abnormal Lab Results
07/16/25
15:24
WBC 1.9 L* 10^3/uL
(4.8-10.8)
RBC 3.48 L 10^6/uL
(4.20-5.40)
Hgb 10.2 L g/dL
(12.0-16.0)
Hct 30.9 L %
(37.0-47.0)
Plt Count 50 L 10^3/uL
(130-400)
MPV 12.0 H fL
(7.4-10.4)
Abs Neuts (Manual) 0.9 L* 10^3/uL
(1.4-6.5)
Segmented Neutrophils 39 L %
(42-75)
Band Neutrophils 9 H %
(0-3)
Lymphocytes (Manual) 15 L %
(20-51)
Monocytes (Manual) 31 H %
(2-9)
Sodium 133 L mmol/L
(135-145)
Carbon Dioxide 21 L mmol/L
(22-30)
BUN 20 H mg/dl
(7-17)
Glucose 134 H mg/dl
(70-99)
Lipase 12 L U/L
(23-300)
07/16/25 15:24
07/16/25 15:24
Vital Signs
Initial and Last Documented VS:
Initial Vital Signs
Temp Pulse Resp BP Pulse Ox
97.6 F 119 16 159/109 98
07/16/25 14:20 07/16/25 14:20 07/16/25 14:20 07/16/25 14:20 07/16/25 14:20
Last Documented Vital Signs
Temp Pulse Resp BP Pulse Ox
97.6 F 88 15 120/57 100
07/16/25 14:20 07/16/25 20:56 07/16/25 20:56 07/16/25 20:56 07/16/25 20:56
<Eduin Prather, DO - Last Filed: 07/16/25 20:36>
Orders/Labs/Results
Orders:
Orders
07/16/25 15:16
IV Insert/Care/Rem.- Treatment PRN
07/16/25 15:24
Complete Blood Count/With Diff Urgent
Comprehensive Metabolic Panel Urgent
Lipase Urgent
Magnesium Urgent
Comment: ADD ON
Manual Differential Urgent
07/16/25 15:43
Add On- LAB Urgent
Tests Added?: magnesium
0.9% Sodium Chloride 1000 ml [Nss] 1,000 ml IV BOLUS
Iohexol [Omnipaque] See Protocol PO NOW STA
07/16/25 15:44
CT Abd/pel W Iv And Oral Contr Urgent
Comment:
Reason For Exam: generalized abd pain, diarrhea
07/16/25 17:41
CDIFF [C difficile Antigen & Toxins] Urgent
BRANDO Source: Feces/Stool
Specimen Description:
Date Specimen was Collected: 07/16/25
Time Specimen was Collected: 16:53
Stool Culture Urgent
BRANDO Source: Feces/Stool
Specimen Description:
Date Specimen was Collected: 07/16/25
Time Specimen was Collected: 16:53
07/16/25 19:12
CefTRIAXone [Rocephin] 1,000 mg IV NOW STA
MetroNIDAZOLE 500 MG/100 ML [Flagyl 500 mg] 100 ml IV NOW
07/16/25 19:49
Admit/Transfer Patient As Directed
Co-Sign Provider:
Level of Care: Inpatient admission
Assign to:: Medical/Surgical
Physician / Group: aydee
Diagnosis: acute colitis
Reason for Hospitalization: acute colitis
Expected length of stay greater than two midnights?: Yes
ELOS- Estimated Length of Stay in days: 2
I certify the patient meets the requirements for IP care: Yes
Code Status As Directed
Resuscitation Status: Full Code
PRN Pain Medication Management As Directed
May give lesser potent ordered pain med per pt: Yes
preference::
Protocol:: Medication orders for pain may be administered in a
manner that supports deferring to patient preference
when the pt is:
- Requesting an ordered lesser potent pain medication.
Least to most potent pain medications are defined
as: acetaminophen < NSAID < tramadol < opioids
(morphine, oxycodone, hydromorphone).
- Requesting a lesser dose of the same medication IF
ORDERED.
- Requesting a less intrusive route of administration
if both routes are prescribed by the provider (PO <
IV).
07/16/25 19:51
C difficile Antigen & Toxins Urgent
BRANDO Source: Feces/Stool
Specimen Description:
Norovirus by PCR Urgent
BRANDO Source: Feces/Stool
Specimen Description:
07/16/25 21:10
Lactate Level [Lactic Acid] Urgent
07/16/25 21:30
Urinalysis Reflex To Culture Urgent
Date Specimen was Collected: 07/16/25
Time Specimen was Collected: 15:16
Abnormal Lab Results
07/16/25
15:24
WBC 1.9 L* 10^3/uL
(4.8-10.8)
RBC 3.48 L 10^6/uL
(4.20-5.40)
Hgb 10.2 L g/dL
(12.0-16.0)
Hct 30.9 L %
(37.0-47.0)
Plt Count 50 L 10^3/uL
(130-400)
MPV 12.0 H fL
(7.4-10.4)
Abs Neuts (Manual) 0.9 L* 10^3/uL
(1.4-6.5)
Segmented Neutrophils 39 L %
(42-75)
Band Neutrophils 9 H %
(0-3)
Lymphocytes (Manual) 15 L %
(20-51)
Monocytes (Manual) 31 H %
(2-9)
Sodium 133 L mmol/L
(135-145)
Carbon Dioxide 21 L mmol/L
(22-30)
BUN 20 H mg/dl
(7-17)
Glucose 134 H mg/dl
(70-99)
Lipase 12 L U/L
(23-300)
07/16/25 15:24
07/16/25 15:24
Vital Signs
Initial and Last Documented VS:
Initial Vital Signs
Temp Pulse Resp BP Pulse Ox
97.6 F 119 16 159/109 98
07/16/25 14:20 07/16/25 14:20 07/16/25 14:20 07/16/25 14:20 07/16/25 14:20
Last Documented Vital Signs
Temp Pulse Resp BP Pulse Ox
97.6 F 88 15 120/57 100
07/16/25 14:20 07/16/25 20:56 07/16/25 20:56 07/16/25 20:56 07/16/25 20:56
<Spring Beckett PA-C - Last Filed: 07/16/25 21:43>
MDM/Problems Addressed
Differential Diagnosis Includes:
79yoF here with diarrhea and abdominal pain. Recently started on chemo last week for pancreatic cancer. HR 119 in triage. Remainder of vitals stable. She is nontoxic-appearing. No signs of peritonitis on abdominal exam. Differential diagnosis
includes but is not limited to: Gastroenteritis, infectious colitis, side effect from chemotherapy, dehydration
Initial ED plan: Check abdominal labs, magnesium, stool studies, and CT abdomen. IV fluid bolus.
<Spring Beckett PA-C - Last Filed: 07/16/25 21:43>
*Pulse Oximetry
SaO2: 98
Oxygen Mode of Delivery: Room air
Patient hypoxic: no
*Critical Care Note
Total Time (30-74mins, 75-104mins- exclusive of procedures): Not Applicable
<Spring Beckett PA-C - Last Filed: 07/16/25 21:43>
Update Note
Update Note:
Labs reveal a leukopenia with a white count of 1.9. ANC 0.9 and bands 9%. CT shows findings suggestive of colitis. Patient with multiple bowel movements during ED stay. IV Rocephin and Flagyl ordered. Patient admitted for further evaluation and
management.
ED Attending Note
<Spring Beckett PA-C - Last Filed: 07/16/25 21:43>
-
Portions of this chart may have been created with voice recognition software.� Occasional wrong word or��sound alike� substitutions may have occurred due to the inherent limitations of voice recognition software.
<Eduin Prather DO - Last Filed: 07/16/25 20:36>
ED Attending Note
Patient seen and examined by attending physician: Yes
ED Attending Note:
I reviewed and agree with history treatment plan by Spring Beckett PA-C, JADYN. My exam revealed 79-year-old female hypertensive, mild tachycardia. Able to ambulate to use bathroom, and having frequent diarrhea. Will treat for colitis. Admit
to hospitalist. Patient at risk for hypovolemia.
Discharge Plan
Departure
Patient Disposition: Admit
Date of Disposition: 07/16/25
Time of Disposition: 19:14
Presentation/result/management discussed w/ accepting MD/DO: Hospitalist
Discharge Problem:
Colitis
Interventions
Interventions:
*Risk Screen - Suicide Last Done: 07/16/25 14:20
*Neglect/Abuse Screening Last Done: 07/16/25 14:20
CZ-[id number] Assessment Last Done: 07/16/25 15:32
[2025-07-16 15:52] LABS: ALT (SGPT) 21 U/L (0-35); AST (SGOT) 19 U/L (14-36); Albumin 3.8 g/dl (3.5-5.0); Alkaline Phosphatase 95 U/L (38-126); Blood Urea Nitrogen 20 mg/dl (7-17); Calcium 8.8 mg/dl (8.4-10.2); Carbon Dioxide 21 mmol/L (22-30); Chloride 102 mmol/L (98-107); Glucose 134 mg/dl (70-99); Lipase 12 U/L (23-300); Potassium 3.8 mmol/L (3.5-5.1); Sodium 133 mmol/L (135-145); Total Protein 6.6 g/dl (6.3-8.2); eGFR > 60.00
[2025-07-16] MEDS: OMNIPAQUE 50 ML PO (15:57)
[2025-07-16] MEDS: NSS 1000 IV ×2 (15:57→23:23)
[2025-07-16 16:09] LABS: Hematocrit 30.9 % (37.0-47.0); Hemoglobin 10.2 g/dL (12.0-16.0); Mean Corp Hgb Conc. 33.0 g/dL (33.0-37.0); Mean Corpuscular Volume 88.8 fL (81.0-99.0); Red Cell Dist. Width 12.4 % (11.5-14.5)
[2025-07-16 16:55] LABS: Magnesium 1.9 mg/dl (1.6-2.3)
[2025-07-16 17:32] LABS: Platelet Count 50 10^3/uL (130-400)
[2025-07-16 17:33] LABS: Absolute Neutrophils -Man Diff 0.9 10^3/uL (1.4-6.5); Platelets Checked Yes
[2025-07-16 17:35] LABS: Normal RBC Morphology Yes; Total Cells Counted 100
[2025-07-16] MEDS: ROCEPHIN 1000 MG IV (19:49)
--- NOTE | 2025-07-16 19:53 | HPS.HSE ---
Family Physician
-
Family Physician: NOT KNOW UNKNOWN - PT DOES
Chief Complaint
-
diarrhea
History of Present Illness
79-year-old female past medical history of pancreatic cancer started chemotherapy last week, splenic vein occlusion hypertension, hyperlipidemia, presenting with abdominal pain and diarrhea and weakness. She started chemotherapy last week. She was
initially constipated and was prescribed MiraLAX 2 days ago but before she was able to start that she experienced cramping followed by a large amount of diarrhea. Diarrhea is continued since then. Diarrhea is watery. Denies fevers or chills.
Denies nausea or vomiting.
Patient denies any recent travel or eating restaurant food. No history of C. difficile
She was recently admitted from 06/09 to 06/11 with pancreatic mass with liver metastases on outpatient CT scan and abdominal discomfort. She underwent IR guided liver biopsy and was seen by oncology. Biopsy showed pancreatic adenocarcinoma. She
follows with Dr. Garcia
She started chemotherapy last week. She is scheduled to have another round of chemotherapy next week.
Denies smoking or alcohol use.
Medical History
Past Medical History
Past Medical History: Reports Other (pancreatic cancer started chemotherapy last week, splenic vein occlusion hypertension, hyperlipidemia)
Past Surgical History: Reports None
Social History
Tobacco: Non-smoker
Alcohol: None
Drug: None
Family History
Family History: Not pertinent
Allergies / Home Medications
Allergies reflects when Allergies were last updated in [facility].
Home Medications with original date entered in [facility]
Allergy/Medication List:
Allergies
Allergy/AdvReac Type Severity Reaction Status Date / Time
Penicillins Allergy reaction Verified 07/16/25 14:18
when young
Home Medications
atorvastatin 20 mg tablet (Lipitor) 20 mg PO QPM cholesterol 06/09/25
latanoprost 0.005 % eye drops 1 drp BOTH EYES HS Eye Condition 06/09/25
metoprolol succinate 25 mg tablet,extended release 24 hr (Toprol XL) 25 mg PO DAILY Blood Pressure 06/09/25
multivitamin with minerals-folic acid 80 mcg chewable tablet 1 tab PO DAILY Supplement 06/09/25
omeprazole 40 mg capsule,delayed release 40 mg PO DAILY Gastrointestinal Issue 06/09/25
valsartan 160 mg tablet 80 mg PO BID Blood Pressure 06/09/25
Lactobacil.acidophilus-Bifido.animalis 5 billion cell sprinkle capsule (Probiotic) 1 cap PO DAILY 07/05/25
-xsm-dlu-other vzsjf0r-sxax oil 350 mg-400 mg capsule 1 cap PO DAILY 07/05/25
bismuth subsalicylate 525 mg tablet (Pepto-Bismol Ultra) 525 mg PO DAILYPRN PRN GERD 07/16/25
calcium carbonate (Tums) 200 mg PO BIDPRN PRN GERD 07/16/25
Review of Systems
-
History Source: Patient
A 12 point ROS was completed and negative except as noted: Yes
Constitutional: Reports No Symptoms
EENT: Reports No Symptoms
Respiratory: Reports No Symptoms
Cardiac: Reports No Symptoms
Abdomen/GI: Reports See HPI
: Reports No Symptoms
Musculoskeletal: Reports No Symptoms
Skin: Reports No Symptoms
Neurological: Reports No Symptoms
Endocrine: Reports No Symptoms
Hematologic/Lymphatic: Reports No Symptoms
Psych: Reports No Symptoms
Physical Exam
Vital Signs
Vital Signs
Temp Pulse Resp BP Pulse Ox
97.6 F 95 19 159/109 100
07/16/25 14:20 07/16/25 17:00 07/16/25 17:00 07/16/25 14:20 07/16/25 16:45
Physical Exam
General: Well Developed, Well Nourished and No Apparent Distress
HEENT: NormoCephalic, Moist mucous membranes and Atraumatic
Respiratory: Clear
Cardiac: S1/S2 and Regular Rhythm; No Murmur or Rub
GI: Soft, Non Distended, Normal Bowel Sounds and Tender (diffusely ); No Organomegaly
Rectal: Deferred by Provider
Musculoskeletal: No Clubbing, No Cyanosis and No Edema
Skin: No Rash
Neuro: Nonfocal/grossly intact
Laboratory Results
-
07/16/25 15:24
07/16/25 15:24
Laboratory Results
Total Bilirubin 0.8 mg/dl (0.2-1.3) 07/16/25 15:24
AST 19 U/L (14-36) 07/16/25 15:24
ALT 21 U/L (0-35) 07/16/25 15:24
Alkaline Phosphatase 95 U/L (38-126) 07/16/25 15:24
Lipase 12 U/L (23-300) L 07/16/25 15:24
Data Reviewed
-
Lab Data: Labs Reviewed by me
Old Records: Reviewed
Impression/Plan
-
IMPRESSION:
PLAN:
# Acute colitis in the setting of immunocompromise status from chemotherapy
-CT abdomen pelvis shows thickening of the wall of the transverse colon, descending colon and sigmoid colon likely colitis
- N.p.o.
- IV fluids
- Check stool studies, C. difficile
- Cefepime/Flagyl
-BRAT diet
# Leukopenia secondary to chemotherapy
- Monitor with antibiotics
# Thrombocytopenia secondary to chemotherapy
- Continue to monitor
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
- Anticoagulation not required
Essential hypertension
- Continue valsartan, metoprolol
Hyperlipidemia
- Continue statin
Full code
DVT prophylaxis�heparin
BRAT diet
[2025-07-16] MEDS: FLAGYL 500 MG 100 IV (19:55)
[2025-07-16 19:58] VITALS: BP 120/57
[2025-07-16 20:56] VITALS: BP 120/57
[2025-07-16 23:03] VITALS: BP 147/74; BMI 23.6
--- NOTE | 2025-07-16 23:20 | PTCARENOTE ---
Pt transferred to 4W. Pt able to walk from stretcher to bed. Pt AAOx3, oriented to room and unit. Safety measures in place, call larkin within reach.
[2025-07-16] MEDS: HEPARIN 5000 UNITS SC (23:28)
[2025-07-16] MEDS: XALATAN OPHTHALMIC SOLUTION BOTH EYES (23:50)
[2025-07-16] MEDS: STERILE WATER FOR INJECTION 10 ML IV (23:51)
[2025-07-16] MEDS: MAXIPIME 2000 MG IV (23:51)
[2025-07-17] MEDS: FLAGYL 500 MG 100 IV ×3 (05:02→20:18)
[2025-07-17 05:42] LABS: Urine Character Clear (Clear)
[2025-07-17 07:00] VITALS: BP 128/60
[2025-07-17 07:12] LABS: Urine Red Blood Cell 0-2 /HPF (0-2)
[2025-07-17 08:07] LABS: Hematocrit 26.4 % (37.0-47.0); Hemoglobin 9.1 g/dL (12.0-16.0); Mean Corp Hgb Conc. 34.5 g/dL (33.0-37.0); Mean Corpuscular Volume 87.7 fL (81.0-99.0); Platelet Count 62 10^3/uL (130-400); Red Cell Dist. Width 12.5 % (11.5-14.5)
[2025-07-17 08:27] LABS: ALT (SGPT) 17 U/L (0-35); AST (SGOT) 18 U/L (14-36); Albumin 3.1 g/dl (3.5-5.0); Alkaline Phosphatase 86 U/L (38-126); Blood Urea Nitrogen 19 mg/dl (7-17); Calcium 8.2 mg/dl (8.4-10.2); Carbon Dioxide 19 mmol/L (22-30); Chloride 105 mmol/L (98-107); Estimated Creatinine Clearance 44 ml/min; Glucose 103 mg/dl (70-99); Potassium 3.3 mmol/L (3.5-5.1); Sodium 133 mmol/L (135-145); Total Protein 5.6 g/dl (6.3-8.2); eGFR > 60.00
[2025-07-17] MEDS: TOPROL XL 25 MG PO (08:32)
[2025-07-17] MEDS: HEPARIN 5000 UNITS SC (08:32)
[2025-07-17] MEDS: DIOVAN 80 MG PO ×2 (08:33→20:13)
[2025-07-17] MEDS: THERAGRAN 1 TABLET PO (08:33)
[2025-07-17] MEDS: VISBIOME 1 CAP PO (08:33)
[2025-07-17] MEDS: PROTONIX 40 MG PO (08:33)
[2025-07-17 08:39] LABS: Nucleated Red Blood Cells % 0.5 %
[2025-07-17 09:25] LABS: Magnesium 2.0 mg/dl (1.6-2.3)
[2025-07-17] MEDS: KCL 40 MEQ PO (10:07)
[2025-07-17 10:09] LABS: Vitamin D, 25-OH*** 58.7 ng/mL (30-80)
[2025-07-17 10:23] LABS: TSH 1.51 uIU/ml (0.47-4.68)
--- NOTE | 2025-07-17 12:09 | CON.ONC ---
Consultation
-
Date Consultation Requested: 07/16/25
Date Consultation Performed: 07/17/25
Reason for Consultation: Diarrhea
Impression
Impression
Enteritis
Neutropenia resolved ANC 2.2
Pancreatic adenocarcinoma stage IV
Chemo-induced anemia
Thrombocytopenia predates chemotherapy secondary to consumption
Status post chemotherapy with FOLFIRINOX
Plan
Plan
IV hydration with continued diarrhea
Monitor electrolytes
Aggressive antidiarrheal therapy with negative C. difficile Imodium 2 p.o. every 4 hours until diarrhea ceases
Monitor CBC and electrolytes daily
Patient History
History of Present Illness
Patient is a fairly robust 79-year-old with a diagnosis of adenocarcinoma of the pancreas. She was treated 10 days ago with FOLFIRINOX at dose adjustment. She tolerated this initially without any significant toxicities. She did complain of some
obstipation and has been aggressive with bowel regiment. She suddenly developed cramping abdominal pain which lasted nearly an hour once associated with loose stool. She now continues to have paroxysms of cramping pain and immediate diarrhea
concerning for delayed chemo enteritis. C. difficile negative.
Past-Medical/Surgical History
Past Medical History: Reports Other (pancreatic cancer started chemotherapy last week, splenic vein occlusion hypertension, hyperlipidemia)
Past Surgical History: Reports None
Social History
Tobacco: Non-smoker
Alcohol: None
Drug: None
Family History
Family History: Not pertinent
Patient Medication
�Medication �Instructions �Recorded �Confirmed �Last Taken �Type
atorvastatin 20 mg tablet (Lipitor) 20 mg PO QPM cholesterol 06/09/25 07/16/25 07/14/25 History
latanoprost 0.005 % eye drops 1 drp BOTH EYES HS Eye Condition 06/09/25 07/16/25 07/15/25 History
metoprolol succinate 25 mg 25 mg PO DAILY Blood Pressure 06/09/25 07/16/25 07/14/25 History
tablet,extended release 24 hr
(Toprol XL)
multivitamin with minerals-folic 1 tab PO DAILY Supplement 06/09/25 07/16/25 07/14/25 History
acid 80 mcg chewable tablet
omeprazole 40 mg capsule,delayed 40 mg PO DAILY Gastrointestinal 06/09/25 07/16/25 07/14/25 History
release Issue
valsartan 160 mg tablet 80 mg PO BID Blood Pressure 06/09/25 07/16/25 07/14/25 History
Lactobacil.acidophilus-Bifido.animalis 1 cap PO DAILY Supplement 07/05/25 07/16/25 07/14/25 History
5 billion cell sprinkle capsule
(Probiotic)
nvfow7-bvv-fcs-other knifi0v-cxzs 1 cap PO DAILY Supplement 07/05/25 07/16/25 07/14/25 History
oil 350 mg-400 mg capsule
bismuth subsalicylate 525 mg 525 mg PO DAILYPRN PRN GERD 07/16/25 07/16/25 07/15/25 History
tablet (Pepto-Bismol Ultra)
calcium carbonate (Tums) 200 mg PO BIDPRN PRN GERD 07/16/25 07/16/25 07/14/25 History
Active Medications
Generic Name Dose Route Start Last Admin
Trade Name Freq PRN Reason Stop Dose Admin
Atorvastatin Calcium 20 mg 07/17/25 18:00
Atorvastatin (Lipitor) 20 Mg Tablet PO 08/14/25 17:59
QPM MIGUEL
Bismuth Subsalicylate 525 mg 07/16/25 23:04
Bismuth Subsalicylate (Same As Pepto-Bismol) 525 Mg/30 Ml Cup PO 08/13/25 23:03
DAILYPRN PRN
GERD
Calcium Carbonate 200 mg 07/16/25 22:57
Calcium Antacid 200 Mg (Calcium Carbonate 500 Mg) Chew Tablet PO 08/13/25 22:56
BIDPRN PRN
GERD
Cefepime HCl 2,000 mg 07/17/25 00:00 07/16/25 23:51
Cefepime Hcl 2,000 Mg/12.5 Ml Vial IV 2,000 mg
Q12H MIGUEL Administration
Enoxaparin Sodium 40 mg 07/17/25 18:00
Enoxaparin Sodium 40 Mg/0.4 Ml Syringe SC 08/14/25 17:59
QPM MIGUEL
Sodium Chloride 1,000 mls @ 100 mls/hr 07/16/25 22:57 07/16/25 23:23
Nss IV 1,000 mls
.Q10H MIGUEL Administration
Metronidazole 100 mls @ 100 mls/hr 07/17/25 04:00 07/17/25 05:02
Flagyl 500 Mg IV 100 mls
Q8H MIGUEL Administration
Lactobacillus/Bifidobacterium 1 cap 07/17/25 08:00 07/17/25 08:33
Lactobac/Bifidobac (Visbiome) PO 08/14/25 07:59 1 cap
DAILY MIGUEL Administration
Latanoprost 1 drop 07/16/25 22:57 07/16/25 23:50
Latanoprost 0.005% (Ophthalmic Solution) 2.5 Ml Bottle BOTH EYES 08/13/25 22:56 Not Given
HS MIGUEL
Metoprolol Succinate 25 mg 07/17/25 08:00 07/17/25 08:32
Metoprolol 25 Mg Extended Release Tablet PO 08/14/25 07:59 25 mg
DAILY MIGUEL Administration
Multivitamins Therapeutic 1 tablet 07/17/25 08:00 07/17/25 08:33
Multivitamin Tablet PO 08/14/25 07:59 1 tablet
DAILY MIGUEL Administration
Ondansetron HCl 4 mg 07/16/25 22:57
Ondansetron 4 Mg/2 Ml Vial IV 08/13/25 22:56
Q6HPRN PRN
nausea and vomiting
Pantoprazole Sodium 40 mg 07/17/25 08:00 07/17/25 08:33
Pantoprazole 40 Mg Delayed Release Tablet PO 08/14/25 07:59 40 mg
DAILY MIGUEL Administration
Sodium Chloride 0 flush 07/16/25 23:00
Sodium Chloride 0.9% (Flush) Syringe IV 08/13/25 22:59
PER PROTOCOL MIGUEL
Sterile Water 10 ml 07/17/25 00:00 07/16/25 23:51
Sterile Water For Injection 10 Ml Vial IV 08/14/25 00:00 10 ml
Q12H MIGUEL Administration
Valsartan 80 mg 07/17/25 08:00 07/17/25 08:33
Valsartan 80 Mg Tablet PO 08/14/25 07:59 80 mg
BID MIGUEL Administration
Review of Systems
-
No fevers. Her appetite had been stable. No atypical bleeding. Additional 12 point review systems unremarkable other than those complaints noted in the HPI.
Physical Exam
-
Physical Exam
General: Well Developed, Well Nourished and No Apparent Distress
HEENT: NormoCephalic, Moist mucous membranes and Atraumatic
Respiratory: Clear
Cardiac: S1/S2 and Regular Rhythm; No Murmur or Rub
GI: Soft, Non Distended, Normal Bowel Sounds and Tender (diffusely ); No Organomegaly
Rectal: Deferred by Provider
Musculoskeletal: No Clubbing, No Cyanosis and No Edema
Skin: No Rash
Neuro: Nonfocal/grossly intact
Labs
Lab Results
WBC 3.9 10^3/uL (4.8-10.8) L 07/17/25 07:22
RBC 3.01 10^6/uL (4.20-5.40) L 07/17/25 07:22
Hgb 9.1 g/dL (12.0-16.0) L 07/17/25 07:22
Hct 26.4 % (37.0-47.0) L 07/17/25 07:22
MCV 87.7 fL (81.0-99.0) 07/17/25 07:22
MCH 30.2 pg (27.0-31.0) 07/17/25 07:22
MCHC 34.5 g/dL (33.0-37.0) 07/17/25 07:22
RDW 12.5 % (11.5-14.5) 07/17/25 07:22
Plt Count 62 10^3/uL (130-400) L D 07/17/25 07:22
MPV 11.8 fL (7.4-10.4) H 07/17/25 07:22
Abs Immat Gran (auto) 0.2 10^3/uL (0-0.05) H 07/17/25 07:22
Absolute Neuts (auto) 2.2 10^3/uL (1.4-6.5) 07/17/25 07:22
Absolute Lymphs (auto) 0.7 10^3/uL (1.2-3.4) L 07/17/25 07:22
Absolute Monos (auto) 0.7 10^3/uL (0.1-0.6) H 07/17/25 07:22
Absolute Eos (auto) 0.0 10^3/uL (0-0.7) 07/17/25 07:22
Absolute Basos (auto) 0.0 10^3/uL (0-0.2) 07/17/25 07:22
Immature Gran % 5.1 % (0-0.5) H 07/17/25 07:22
Neutrophils % 56.2 % (42.2-75.2) 07/17/25 07:22
Lymphocytes % 18.6 % (20.5-51.1) L 07/17/25 07:22
Monocytes % 18.6 % (1.7-9.3) H 07/17/25 07:22
Eosinophils % 0.5 % (0-6) 07/17/25:
Basophils % 1.0 % (0-2) 07/17/25 07:22
Creatinine 0.8 mg/dL (0.6-1.0) 07/17/25 07:22
Vital Signs
Vital Signs
Temp Pulse Resp BP Pulse Ox
98.5 F 92 12 128/60 98
07/17/25 07:00 07/17/25 08:32 07/17/25 07:00 07/17/25 08:32 07/17/25 10:39
[2025-07-17] MEDS: MAXIPIME 2000 MG IV (13:05)
[2025-07-17] MEDS: STERILE WATER FOR INJECTION 10 ML IV (13:05)
[2025-07-17 14:44] VITALS: BMI 23.6
[2025-07-17 15:00] VITALS: BP 116/58
--- NOTE | 2025-07-17 15:08 | W.PN.HOSP.TC ---
Today's Communication/Plan
-
Add Imodium
Wait for stool cultures
Continue antibiotics
Assessment / Plan
Assessment / Plan
79-year-old female with abdominal pain diarrhea. She was started on chemotherapy last week. No recent travel or restaurant food. No history of C. difficile. Patient was admitted 06/09/2025 to 06/11/2025 pancreatic mass with liver metastasis
underwent IR biopsy which showed this is pancreatic adenocarcinoma. Follows with Dr. Garcia. Started on chemotherapy last week.
CT abdomen pelvis-thickening of the wall of the transverse colon, descending colon and sigmoid colon likely representing colitis without findings to suggest colonic pneumatosis, intestinal obstruction or free air. Sigmoid diverticulosis. Known
pancreatic body malignancy slightly increased in size and probable new small hepatic lesions compatible with malignancy/metastatic disease.
Awake alert oriented
Cardiovascular system S1-S2 appreciated
Chest clear to auscultation
Abdomen soft and nontender
# Acute colitis/Enteritis due to immunocompromised state from chemotherapy
Check stool cultures, C. difficile negative
Continue cefepime and Flagyl
IV fluids support
Add as needed Imodium
# Mild hyponatremia likely secondary to hypovolemia watch
# Mild hypokalemia-replace
# Pancytopenia secondary to chemotherapy-on FOLFIRINOX monitor counts
# Pancreatic adenocarcinoma with metastasis to liver on chemotherapy-consult oncology
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
# Hypertension-valsartan and metoprolol
# Hyperlipidemia-continue statin
# GERD/hiatal hernia-continue PPI
# Glaucoma-continue latanoprost eyedrops
# Sigmoid diverticulosis
# DVT prophylaxis-Lovenox
# Full code
D/W
Part of this note was created using voice recognition system. Occasional wrong word or��sound alike� substitutions may have inadvertently occurred due to the inherent limitations of voice recognition software. If noted kindly bring it to my
attention for correction.
Anticipated Discharge: Within 24 hours
Subjective/Interval History
-
Date of Service: July 17, 2025
Objective Data
-
Labs:
Laboratory Results
07/17/25
07:22
WBC 3.9 L
Hgb 9.1 L
Hct 26.4 L
Plt Count 62 L D
Sodium 133 L
Potassium 3.3 L
Chloride 105
Carbon Dioxide 19 L
BUN 19 H
Creatinine 0.8
Glucose 103 H
Calcium 8.2 L
Total Bilirubin 0.4
AST 18
ALT 17
Alkaline Phosphatase 86
Vital Signs:
Vital Signs
Temp Pulse Resp BP Pulse Ox
98.5 F 92 12 128/60 98
07/17/25 07:00 07/17/25 08:32 07/17/25 07:00 07/17/25 08:32 07/17/25 10:39
I&O
07/16/25 07/17/25 07/18/25
06:59 06:59 05:59
Intake Total 1280 / 1280 240 / 240
Balance 1280 / 1280 240 / 240
--- NOTE | 2025-07-17 16:14 | CM ---
Patient lives with spouse and son in a slip level home, one step to enter, 7 steps to bed and bathroom, patient is independent with adl's and ambulation, per patient her spouse uses equipment in home, home when stable.
PCP: Shelton Bentley
Pharmacy: [facility] in [place]
[2025-07-17] MEDS: LIPITOR 20 MG PO (16:21)
[2025-07-17] MEDS: LOVENOX 40 MG SC (16:21)
[2025-07-17] MEDS: IMODIUM 2 MG PO (16:25)
[2025-07-17] MEDS: NSS IV (17:07)
[2025-07-17] MEDS: NSS 1000 IV (18:45)
[2025-07-17] MEDS: XALATAN OPHTHALMIC SOLUTION 1 DROP BOTH EYES (22:43)
[2025-07-17 23:18] VITALS: BP 110/55
[2025-07-18] MEDS: MAXIPIME 2000 MG IV ×2 (00:27→11:32)
[2025-07-18] MEDS: STERILE WATER FOR INJECTION 10 ML IV ×2 (00:28→11:31)
[2025-07-18] MEDS: IMODIUM 2 MG PO ×3 (00:35→22:34)
[2025-07-18] MEDS: FLAGYL 500 MG 100 IV ×3 (04:14→19:54)
[2025-07-18] MEDS: NSS 1000 IV ×2 (04:14→17:16)
[2025-07-18 07:50] VITALS: BP 106/51
[2025-07-18] MEDS: PROTONIX 40 MG PO (08:26)
[2025-07-18] MEDS: THERAGRAN 1 TABLET PO (08:27)
[2025-07-18] MEDS: DIOVAN 80 MG PO ×2 (08:27→19:54)
[2025-07-18] MEDS: TOPROL XL 25 MG PO (08:28)
[2025-07-18] MEDS: VISBIOME 1 CAP PO (08:28)
[2025-07-18 08:58] LABS: Blood Urea Nitrogen 14 mg/dl (7-17); Calcium 8.6 mg/dl (8.4-10.2); Carbon Dioxide 17 mmol/L (22-30); Chloride 109 mmol/L (98-107); Estimated Creatinine Clearance 44 ml/min; Glucose 96 mg/dl (70-99); Magnesium 2.1 mg/dl (1.6-2.3); Potassium 3.4 mmol/L (3.5-5.1); Sodium 137 mmol/L (135-145); eGFR > 60.00
[2025-07-18] MEDS: KCL 40 MEQ PO (11:31)
--- NOTE | 2025-07-18 15:02 | W.PN.HOSP.TC ---
Today's Communication/Plan
-
Imodium.
Assessment / Plan
Assessment / Plan
79-year-old female with abdominal pain diarrhea. She was started on chemotherapy last week. No recent travel or restaurant food. No history of C. difficile. Patient was admitted 06/09/2025 to 06/11/2025 pancreatic mass with liver metastasis
underwent IR biopsy which showed this is pancreatic adenocarcinoma. Follows with Dr. Garcia. Started on chemotherapy last week.
CT abdomen pelvis-thickening of the wall of the transverse colon, descending colon and sigmoid colon likely representing colitis without findings to suggest colonic pneumatosis, intestinal obstruction or free air. Sigmoid diverticulosis. Known
pancreatic body malignancy slightly increased in size and probable new small hepatic lesions compatible with malignancy/metastatic disease.
Awake alert oriented
Cardiovascular system S1-S2 appreciated
Chest clear to auscultation
Abdomen soft and nontender
# Acute colitis/Enteritis due to immunocompromised state from chemotherapy
C. difficile negative, Shigella and Campylobacter is neg. Shiga pending.
Continue cefepime and Flagyl
IV fluids support
Add as needed Imodium
# Mild hyponatremia likely secondary to hypovolemia watch
# Mild hypokalemia-replace
# Pancytopenia secondary to chemotherapy-on FOLFIRINOX monitor counts
# Pancreatic adenocarcinoma with metastasis to liver on chemotherapy-consult oncology
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
# Hypertension-valsartan and metoprolol
# Hyperlipidemia-continue statin
# GERD/hiatal hernia-continue PPI
# Glaucoma-continue latanoprost eyedrops
# Sigmoid diverticulosis
# DVT prophylaxis-Lovenox
# Full code
D/W
Part of this note was created using voice recognition system. Occasional wrong word or��sound alike� substitutions may have inadvertently occurred due to the inherent limitations of voice recognition software. If noted kindly bring it to my
attention for correction.
Anticipated Discharge: Within 24 hours
Subjective/Interval History
-
Date of Service: July 18, 2025
Objective Data
-
Labs:
Laboratory Results
07/18/25 07/18/25
08:02 14:43
WBC Pending
Hgb Pending
Hct Pending
Plt Count Pending
Sodium 137
Potassium 3.4 L
Chloride 109 H
Carbon Dioxide 17 L
BUN 14
Creatinine 0.8
Glucose 96
Calcium 8.6
Vital Signs:
Vital Signs
Temp Pulse Resp BP Pulse Ox
98.3 F 90 18 106/51 99
07/18/25 07:50 07/18/25 07:50 07/18/25 07:50 07/18/25 07:50 07/18/25 07:50
I&O
07/17/25 07/18/25 07/19/25
06:59 05:59 06:59
Intake Total 1280 / 1280 1440 / 1440
Balance 1280 / 1280 1440 / 1440
[2025-07-18 15:04] LABS: Hematocrit 30.8 % (37.0-47.0); Hemoglobin 9.8 g/dL (12.0-16.0); Mean Corp Hgb Conc. 31.8 g/dL (33.0-37.0); Mean Corpuscular Volume 91.9 fL (81.0-99.0); Platelet Count 104 10^3/uL (130-400); Red Cell Dist. Width 13.0 % (11.5-14.5)
[2025-07-18 16:44] VITALS: BP 114/56
[2025-07-18] MEDS: ZENPEP DELAYED RELEASE CAPSULE 1 CAPSULE PO ×2 (17:15→22:32)
[2025-07-18] MEDS: LOVENOX 40 MG SC (17:15)
[2025-07-18] MEDS: LIPITOR 20 MG PO (17:16)
[2025-07-18] MEDS: XALATAN OPHTHALMIC SOLUTION 1 DROP BOTH EYES (22:34)
[2025-07-18 23:30] VITALS: BP 103/52
[2025-07-19] MEDS: MAXIPIME 2000 MG IV ×3 (00:09→23:48)
[2025-07-19] MEDS: STERILE WATER FOR INJECTION 10 ML IV ×3 (00:09→23:48)
[2025-07-19] MEDS: IMODIUM 2 MG PO ×5 (03:21→21:46)
[2025-07-19] MEDS: NSS 1000 IV ×2 (03:21→17:28)
[2025-07-19] MEDS: FLAGYL 500 MG 100 IV ×3 (03:21→21:38)
[2025-07-19 07:41] VITALS: BP 103/52
--- NOTE | 2025-07-19 09:00 | PN.CDI ---
CDI
- -
CDI:
Physician Documentation Request
Admit Date: 07/16/25 20:32
Dear Doctor Monica,
Please review the following and provide your response in the progress notes.
Clinical Indicators:
07/17, Rig Site [employer]
#Significant 9lb, 7.2% weight loss x 1 month.
#...meets criteria for severe protein calorie malnutrition of chronic illness
#...with >5% wt loss x 1 month, prolonged poor intake prior to hospital
#...admit <75% for >1 month.
To ensure the quality of the medical record, based on the above information and the recognized standards for malnutrition , please verify which of the following responses best reflects the patient's nutritional status:
Severe Protein Calorie Malnutrition of Chronic Illness is/was present and is a clinical diagnosis (please provide additional support in the medical record)
Other level of malnutrition is present (Mild, Moderate or Severe)
Other (please specify)
[place] Criteria ([employer] Hospitalist 2017)
2 or more criteria must be present for either
non severe or severe malnutrition
Note that the criteria differs related to the
presence of an acute or chronic illness
Chronic Illness
Energy Intake Non Severe: <75% for >1 month
Severe: <75% for >1 month
Weight Loss Non Severe: 5% over 1 month
7.5% over 3 months
10% over 6 months
20% over 1 year
Severe: >5% over 1 month
>7.5% over 3 months
>10% over 6 months
>20% over 1 year
Body Fat Non Severe: Mild Loss
Severe: Severe Loss
Muscle Mass Non Severe: Mild Loss
Severe: Severe Loss
Use of terms such as suspected, likely, concern for, or probable (associated with a specific diagnosis that is being evaluated, monitored, or treated as if it exists) are acceptable and can be coded in the inpatient setting, when documented at the
time of discharge.
Thank you,
Alexandria Brown RN BSN CCDS
CDI Specialist
Please contact via tiger text
Please use your independent medical judgment in providing your response.
[2025-07-19 09:20] LABS: Hematocrit 30.8 % (37.0-47.0); Hemoglobin 9.7 g/dL (12.0-16.0); Mean Corp Hgb Conc. 31.5 g/dL (33.0-37.0); Mean Corpuscular Volume 92.8 fL (81.0-99.0); Platelet Count 118 10^3/uL (130-400); Red Cell Dist. Width 13.2 % (11.5-14.5)
--- NOTE | 2025-07-19 09:32 | W.PN.ONC2 ---
Today's Communication / Plan
-
.
Impression
Impression
Enteritis
Neutropenia resolved
Pancreatic adenocarcinoma stage IV
Chemo-induced anemia
thrombocytopenia improved, chronic thrombocytopenia predates chemotherapy
Status post chemotherapy with FOLFIRINOX
Plan
Plan
Daily CBC, CMP
replete electrolytes, ensure adequate hydration
antidiarrheals prn,
continue Creon
Subjective/Objective
Subjective
afebrile, no hypoxia or hypotension
using imodium prn diarrhea -3 loose stools today
Vital Signs:
Vital Signs
Temp Pulse Resp BP Pulse Ox
98.3 F 72 17 103/52 97
07/19/25 07:41 07/19/25 07:41 07/19/25 07:41 07/19/25 07:41 07/19/25 07:41
Lab Results:
Laboratory Data
WBC 24.7 10^3/uL (4.8-10.8) H 07/19/25 08:54
Hgb 9.7 g/dL (12.0-16.0) L 07/19/25 08:54
Plt Count 118 10^3/uL (130-400) L 07/19/25 08:54
eGFR > 60.00 07/18/25 08:02
Physical Exam
HEENT: Moist Mucous Membranes; No Jaundice
Pulmonary: Other (unlabored)
GI: Soft
Extremities: Pulses Present
Neuro: Non Focal
[2025-07-19] MEDS: TOPROL XL 25 MG PO (09:43)
[2025-07-19] MEDS: ZENPEP DELAYED RELEASE CAPSULE 1 CAPSULE PO ×4 (09:43→21:50)
[2025-07-19] MEDS: KCL 40 MEQ PO (09:43)
[2025-07-19] MEDS: PROTONIX 40 MG PO (09:43)
[2025-07-19] MEDS: VISBIOME 1 CAP PO (09:44)
[2025-07-19] MEDS: THERAGRAN 1 TABLET PO (09:44)
[2025-07-19] MEDS: DIOVAN 80 MG PO ×2 (09:44→21:31)
[2025-07-19 09:52] LABS: Blood Urea Nitrogen 9 mg/dl (7-17); Calcium 8.4 mg/dl (8.4-10.2); Carbon Dioxide 20 mmol/L (22-30); Chloride 112 mmol/L (98-107); Estimated Creatinine Clearance 50 ml/min; Glucose 109 mg/dl (70-99); Potassium 3.2 mmol/L (3.5-5.1); Sodium 136 mmol/L (135-145); eGFR > 60.00
--- NOTE | 2025-07-19 10:31 | W.PN.HOSP.TC ---
Addendum entered and electronically signed by Viral Anderson MD 07/20/25 08:24:
severe protein calorie malnutrition
Addendum entered and electronically signed by Viral Anderson MD 07/19/25 13:57:
Seen and examined the patient. Agree with the plan formulated by the resident.
79-year-old female with abdominal pain diarrhea. She was started on chemotherapy last week. No recent travel or restaurant food. No history of C. difficile. Patient was admitted 06/09/2025 to 06/11/2025 pancreatic mass with liver metastasis
underwent IR biopsy which showed this is pancreatic adenocarcinoma. Follows with Dr. Garcia. Started on chemotherapy last week.
CT abdomen pelvis-thickening of the wall of the transverse colon, descending colon and sigmoid colon likely representing colitis without findings to suggest colonic pneumatosis, intestinal obstruction or free air. Sigmoid diverticulosis. Known
pancreatic body malignancy slightly increased in size and probable new small hepatic lesions compatible with malignancy/metastatic disease.
Awake alert oriented
Cardiovascular system S1-S2 appreciated
Chest clear to auscultation
Abdomen soft and nontender
# Acute colitis/Enteritis due to immunocompromised state from chemotherapy
C. difficile negative, Shigella and Campylobacter is neg. Shiga neg, Norovirus neg
Continue cefepime and Flagyl
IV fluids support
Add as needed Imodium
Added Questran
# Leukocytosis-secondary to pegfilgrastim patient received on July 09, 2025
# Mild hyponatremia likely secondary to hypovolemia -Improved
# Mild hypokalemia-replace
# Pancytopenia secondary to chemotherapy-on FOLFIRINOX monitor counts
# Pancreatic adenocarcinoma with metastasis to liver on chemotherapy-consult oncology
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
# Hypertension-valsartan and metoprolol
# Hyperlipidemia-continue statin
# GERD/hiatal hernia-continue PPI
# Glaucoma-continue latanoprost eyedrops
# Sigmoid diverticulosis
# DVT prophylaxis-Lovenox
# Full code
D/W Heme
Part of this note was created using voice recognition system. Occasional wrong word or��sound alike� substitutions may have inadvertently occurred due to the inherent limitations of voice recognition software. If noted kindly bring it to my
attention for correction.
Anticipated Discharge: Within 24 hours
Original Note:
Today's Communication/Plan
-
Imodium
IV fluid
Questran
KCl p.o.
Assessment / Plan
Assessment / Plan
79-year-old female with abdominal pain diarrhea. She was started on chemotherapy last week. No recent travel or restaurant food. No history of C. difficile. Patient was admitted 06/09/2025 to 06/11/2025 pancreatic mass with liver metastasis
underwent IR biopsy which showed this is pancreatic adenocarcinoma. Follows with Dr. Garcia. Started on chemotherapy last week.
CT abdomen pelvis-thickening of the wall of the transverse colon, descending colon and sigmoid colon likely representing colitis without findings to suggest colonic pneumatosis, intestinal obstruction or free air. Sigmoid diverticulosis. Known
pancreatic body malignancy slightly increased in size and probable new small hepatic lesions compatible with malignancy/metastatic disease.
# Acute colitis/Enteritis due to immunocompromised state from chemotherapy
C. difficile negative, Shigella and Campylobacter is neg. Shiga negative
Continue cefepime and Flagyl for now
IV fluids support
as needed Imodium
Start Questran
# Leukocytosis
- Unclear if she received any G-CSF with her chemo; will check with oncology
- repeat Labs in the AM
# Mild hyponatremia likely secondary to hypovolemia watch; resolved
# Mild hypokalemia-replete
# Pancytopenia secondary to chemotherapy-on FOLFIRINOX monitor counts
# Pancreatic adenocarcinoma with metastasis to liver on chemotherapy-consult oncology
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
# Hypertension-valsartan and metoprolol
# Hyperlipidemia-continue statin
# GERD/hiatal hernia-continue PPI
# Glaucoma-continue latanoprost eyedrops
# Sigmoid diverticulosis
# DVT prophylaxis-Lovenox
# Full code
Anticipated Discharge: Within 24 hours
Subjective/Interval History
-
Date of Service: July 19, 2025
AFVSS. Continues to have intermittent abdominal cramps and watery stools. States that she had multiple loose stools in the past 24 hours. Denies any blood in the stools
Objective Data
-
Labs:
Laboratory Results
07/19/25
08:54
WBC 24.7 H
Hgb 9.7 L
Hct 30.8 L
Plt Count 118 L
Sodium 136
Potassium 3.2 L
Chloride 112 H
Carbon Dioxide 20 L
BUN 9
Creatinine 0.7
Glucose 109 H
Calcium 8.4
Vital Signs:
Vital Signs
Temp Pulse Resp BP Pulse Ox
98.3 F 72 17 103/52 97
07/19/25 07:41 07/19/25 07:41 07/19/25 07:41 07/19/25 07:41 07/19/25 07:41
I&O
07/18/25 07/19/25 07/20/25
05:59 06:59 06:59
Intake Total 1440 / 1440 2652.5 / 2652.5
Balance 1440 / 1440 2652.5 / 2652.5
Review of Systems
-
History Source: Patient
Abdomen/GI: Reports Abdominal Pain and Diarrhea
Physical Exam
-
General: No Apparent Distress
Respiratory: Clear to Auscultation
Cardiac: Regular Rhythm
GI: Soft, Nontender and Nondistended
Skin: Warm
Neuro: Awake, Alert and Oriented
Psych: Calm
Data Reviewed
-
Labs: Labs Reviewed by me, Discussed with Physician and Discussed with Patient
--- NOTE | 2025-07-19 11:41 | CM ---
CM reviewed chart, patient seen bedside.
Patient denies needs at this time.
Patient current with chemotherapy- follows with Dr. Garcia.
CM will continue to follow for all discharge planning needs.
Plan; home no needs
[2025-07-19] MEDS: QUESTRAN 4 GRAM PO (13:00)
[2025-07-19 15:40] VITALS: BP 111/57
[2025-07-19] MEDS: LIPITOR 20 MG PO (17:29)
[2025-07-19] MEDS: LOVENOX 40 MG SC (17:29)
[2025-07-19] MEDS: XALATAN OPHTHALMIC SOLUTION 1 DROP BOTH EYES (22:14)
[2025-07-19 23:35] VITALS: BP 112/56
[2025-07-20] MEDS: NSS 1000 IV ×2 (02:10→17:32)
[2025-07-20] MEDS: IMODIUM 2 MG PO ×2 (03:50→08:22)
[2025-07-20] MEDS: FLAGYL 500 MG 100 IV ×3 (03:50→19:36)
[2025-07-20 07:00] VITALS: BP 123/59
[2025-07-20] MEDS: NSS IV (08:00)
[2025-07-20] MEDS: TOPROL XL 25 MG PO (08:13)
[2025-07-20] MEDS: THERAGRAN 1 TABLET PO (08:16)
[2025-07-20] MEDS: VISBIOME 1 CAP PO (08:16)
[2025-07-20] MEDS: DIOVAN 80 MG PO ×2 (08:16→19:36)
[2025-07-20] MEDS: PROTONIX 40 MG PO (08:16)
[2025-07-20] MEDS: ZENPEP DELAYED RELEASE CAPSULE 1 CAPSULE PO ×4 (08:16→21:31)
--- NOTE | 2025-07-20 09:18 | W.PN.ONC2 ---
Today's Communication / Plan
-
.
Impression
Impression
Enteritis
Neutropenia resolved
Pancreatic adenocarcinoma stage IV
Chemo-induced anemia
thrombocytopenia improved, chronic thrombocytopenia predates chemotherapy
Status post chemotherapy with FOLFIRINOX
Plan
Plan
Daily CBC, CMP
replete electrolytes, ensure adequate hydration
antidiarrheals prn, add lomotil prn
continue Creon
treatment will be rescheduled upon
Subjective/Objective
Subjective
afebrile, no hypoxia or hypotension
8 loose stools overnight
12mg loperimide/24hours, taking creon BID, started questran yesterday
Vital Signs:
Vital Signs
Temp Pulse Resp BP Pulse Ox
98.6 F 85 18 123/59 99
07/20/25 07:00 07/20/25 08:13 07/20/25 07:00 07/20/25 08:13 07/20/25 07:00
Lab Results:
Laboratory Data
WBC 24.7 10^3/uL (4.8-10.8) H 07/19/25 08:54
Hgb 9.7 g/dL (12.0-16.0) L 07/19/25 08:54
Plt Count 118 10^3/uL (130-400) L 07/19/25 08:54
eGFR > 60.00 07/19/25 08:54
Physical Exam
HEENT: Moist Mucous Membranes; No Jaundice
Pulmonary: Other (unlabored)
Rectal: Brown
Extremities: Pulses Present; No Edema
Neuro: Non Focal
[2025-07-20 10:02] LABS: Blood Urea Nitrogen 4 mg/dl (7-17); Calcium 8.3 mg/dl (8.4-10.2); Carbon Dioxide 20 mmol/L (22-30); Chloride 116 mmol/L (98-107); Estimated Creatinine Clearance 50 ml/min; Glucose 122 mg/dl (70-99); Magnesium 1.9 mg/dl (1.6-2.3); Potassium 3.5 mmol/L (3.5-5.1); Sodium 140 mmol/L (135-145); eGFR > 60.00
[2025-07-20] MEDS: STERILE WATER FOR INJECTION 10 ML IV ×2 (13:04→23:57)
[2025-07-20] MEDS: MAXIPIME 2000 MG IV ×2 (13:06→23:57)
[2025-07-20] MEDS: LOMOTIL 1 TABLET PO ×2 (13:43→19:43)
[2025-07-20 14:59] VITALS: BP 107/61
--- NOTE | 2025-07-20 15:01 | W.PN.HOSP.TC ---
Today's Communication/Plan
-
Diet changed according to patient's preference to low residue diet
Supportive treatment.
If not better will need GI eval.
Assessment / Plan
Assessment / Plan
79-year-old female with abdominal pain diarrhea. She was started on chemotherapy last week. No recent travel or restaurant food. No history of C. difficile. Patient was admitted 06/09/2025 to 06/11/2025 pancreatic mass with liver metastasis
underwent IR biopsy which showed this is pancreatic adenocarcinoma. Follows with Dr. Garcia. Started on chemotherapy last week.
CT abdomen pelvis-thickening of the wall of the transverse colon, descending colon and sigmoid colon likely representing colitis without findings to suggest colonic pneumatosis, intestinal obstruction or free air. Sigmoid diverticulosis. Known
pancreatic body malignancy slightly increased in size and probable new small hepatic lesions compatible with malignancy/metastatic disease.
Awake alert oriented
Cardiovascular system S1-S2 appreciated
Chest clear to auscultation
Abdomen soft and nontender
# Acute colitis/Enteritis due to immunocompromised state from chemotherapy
C. difficile negative, Shigella and Campylobacter is neg. Shiga neg, Norovirus neg, Giardia and Cryptosporidium negative
Continue cefepime and Flagyl for now
IV fluids support
Add as needed Imodium, Lomotil added
Continue Questran
# Leukocytosis-secondary to pegfilgrastim patient received on July 09, 2025
# Mild hyponatremia likely secondary to hypovolemia -Improved
# Mild hypokalemia-replaced
# Pancytopenia secondary to chemotherapy-on FOLFIRINOX -monitor counts
# Pancreatic adenocarcinoma with metastasis to liver on chemotherapy- oncology following
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
# Hypertension-valsartan and metoprolol
# Hyperlipidemia-continue statin
# GERD/hiatal hernia-continue PPI
# Glaucoma-continue latanoprost eyedrops
# Sigmoid diverticulosis
# DVT prophylaxis-Lovenox
# Full code.
Offered to talk to family. Pt declined.
D/W Heme
D/W RN at bed side
Part of this note was created using voice recognition system. Occasional wrong word or��sound alike� substitutions may have inadvertently occurred due to the inherent limitations of voice recognition software. If noted kindly bring it to my
attention for correction.
Anticipated Discharge: 24 - 48 hours
Subjective/Interval History
-
Date of Service: July 20, 2025
Objective Data
-
Labs:
Laboratory Results
07/20/25
09:24
Sodium 140
Potassium 3.5
Chloride 116 H
Carbon Dioxide 20 L
BUN 4 L
Creatinine 0.7
Glucose 122 H
Calcium 8.3 L
Vital Signs:
Vital Signs
Temp Pulse Resp BP Pulse Ox
98.4 F 77 16 107/61 99
07/20/25 14:59 07/20/25 14:59 07/20/25 14:59 07/20/25 14:59 07/20/25 14:59
I&O
07/19/25 07/20/25 07/21/25
06:59 06:59 06:59
Intake Total 2652.5 / 2652.5 660 / 660
Balance 2652.5 / 2652.5 660 / 660
[2025-07-20] MEDS: QUESTRAN 4 GRAM PO (15:07)
[2025-07-20] MEDS: LOVENOX 40 MG SC (18:24)
[2025-07-20] MEDS: LIPITOR 20 MG PO (18:25)
[2025-07-20] MEDS: XALATAN OPHTHALMIC SOLUTION 1 DROP BOTH EYES (21:31)
[2025-07-20 23:00] VITALS: BP 114/62
[2025-07-21] MEDS: LOMOTIL 1 TABLET PO ×2 (03:26→22:13)
[2025-07-21] MEDS: FLAGYL 500 MG 100 IV ×3 (03:26→20:19)
[2025-07-21 07:00] VITALS: BP 107/66
--- NOTE | 2025-07-21 07:42 | W.PN.HOSP.TC ---
Addendum entered and electronically signed by Viral Anderson MD 07/21/25 14:46:
Spoke to patient's and updated. He requested a callback from GI
Addendum entered and electronically signed by Viral Anderson MD 07/21/25 14:44:
79-year-old female with abdominal pain diarrhea. She was started on chemotherapy last week. No recent travel or restaurant food. No history of C. difficile. Patient was admitted 06/09/2025 to 06/11/2025 pancreatic mass with liver metastasis
underwent IR biopsy which showed this is pancreatic adenocarcinoma. Follows with Dr. Garcia. Started on chemotherapy last week.
CT abdomen pelvis-thickening of the wall of the transverse colon, descending colon and sigmoid colon likely representing colitis without findings to suggest colonic pneumatosis, intestinal obstruction or free air. Sigmoid diverticulosis. Known
pancreatic body malignancy slightly increased in size and probable new small hepatic lesions compatible with malignancy/metastatic disease.
Awake alert oriented
Cardiovascular system S1-S2 appreciated
Chest clear to auscultation
Abdomen soft and nontender
# Acute colitis/Enteritis due to immunocompromised state from chemotherapy
C. difficile negative, Shigella and Campylobacter is neg. Shiga neg, Norovirus neg, Giardia and Cryptosporidium negative
Continue cefepime and Flagyl for now
IV fluids support
Imodium scheduled doses, PRN Lomotil added
Continue Questran
Continue Zenpep
# Leukocytosis-secondary to pegfilgrastim patient received on July 09, 2025
# Mild hyponatremia likely secondary to hypovolemia -Improved
# Mild hypokalemia-replace
# Pancytopenia secondary to chemotherapy-on FOLFIRINOX -monitor counts
# Pancreatic adenocarcinoma with metastasis to liver on chemotherapy- oncology following
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
# Hypertension-valsartan and metoprolol. Decerase Valsartan to 40 BID
# Hyperlipidemia-continue statin
# GERD/hiatal hernia-continue PPI
# Glaucoma-continue latanoprost eyedrops
# Sigmoid diverticulosis
# DVT prophylaxis-Lovenox
# Full code.
D/W RN at bed side
Part of this note was created using voice recognition system. Occasional wrong word or��sound alike� substitutions may have inadvertently occurred due to the inherent limitations of voice recognition software. If noted kindly bring it to my
attention for correction.
Original Note:
Today's Communication/Plan
-
Imodium changed to scheduled
Replete potassium 80meq total today
GI consult
Assessment / Plan
Assessment / Plan
79-year-old female with abdominal pain diarrhea. She was started on chemotherapy last week. No recent travel or restaurant food. No history of C. difficile. Patient was admitted 06/09/2025 to 06/11/2025 pancreatic mass with liver metastasis
underwent IR biopsy which showed this is pancreatic adenocarcinoma. Follows with Dr. Garcia. Started on chemotherapy last week.
CT abdomen pelvis-thickening of the wall of the transverse colon, descending colon and sigmoid colon likely representing colitis without findings to suggest colonic pneumatosis, intestinal obstruction or free air. Sigmoid diverticulosis. Known
pancreatic body malignancy slightly increased in size and probable new small hepatic lesions compatible with malignancy/metastatic disease.
# Acute colitis/Enteritis due to immunocompromised state from chemotherapy
C. difficile negative, Shigella and Campylobacter is neg. Shiga neg, Norovirus neg, Giardia and Cryptosporidium negative
Continue cefepime and Flagyl for now
IV fluids support
Add as needed Lomotil; change Imodium to scheduled every 6
Continue Questran
GI consult
# Leukocytosis-secondary to pegfilgrastim patient received on July 09, 2025
# Mild hyponatremia likely secondary to hypovolemia -Improved
# hypokalemia-replete 80meq total today
# Pancytopenia secondary to chemotherapy-on FOLFIRINOX -monitor counts
# Pancreatic adenocarcinoma with metastasis to liver on chemotherapy- oncology following
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
# Hypertension-valsartan and metoprolol
# Hyperlipidemia-continue statin
# GERD/hiatal hernia-continue PPI
# Glaucoma-continue latanoprost eyedrops
# Sigmoid diverticulosis
# DVT prophylaxis-Lovenox
# Full code.
Anticipated Discharge: Within 24 hours
Subjective/Interval History
-
Date of Service: July 21, 2025
Multiple episodes of watery stools
Objective Data
-
Labs:
Laboratory Results
07/21/25
06:00
WBC Pending
Hgb Pending
Hct Pending
Plt Count Pending
Sodium Pending
Potassium Pending
Chloride Pending
Carbon Dioxide Pending
BUN Pending
Creatinine Pending
Glucose Pending
Calcium Pending
Vital Signs:
Vital Signs
Temp Pulse Resp BP Pulse Ox
98.4 F 81 18 114/62 97
07/20/25 23:00 07/20/25 23:00 07/20/25 23:00 07/20/25 23:00 07/20/25 23:00
I&O
07/20/25 07/21/25 07/22/25
06:59 06:59 06:59
Intake Total 660 / 660 1040 / 1040
Balance 660 / 660 1040 / 1040
Review of Systems
-
History Source: Patient
Abdomen/GI: Reports Abdominal Pain and Diarrhea
Physical Exam
-
General: No Apparent Distress
Respiratory: Clear to Auscultation
Cardiac: Regular Rhythm
GI: Soft, Nontender and Nondistended
Skin: Warm
Neuro: Awake, Alert and Oriented
Psych: Calm
Data Reviewed
-
Labs: Labs Reviewed by me, Discussed with Physician and Discussed with Patient
[2025-07-21] MEDS: THERAGRAN 1 TABLET PO (08:41)
[2025-07-21] MEDS: VISBIOME PO ×2 (08:42→09:48)
[2025-07-21] MEDS: PROTONIX 40 MG PO (08:42)
[2025-07-21] MEDS: ZENPEP DELAYED RELEASE CAPSULE 1 CAPSULE PO ×4 (08:42→22:10)
[2025-07-21] MEDS: DIOVAN 80 MG PO (08:43)
[2025-07-21] MEDS: TOPROL XL 25 MG PO (08:44)
[2025-07-21] MEDS: IMODIUM 2 MG PO ×3 (08:50→17:15)
[2025-07-21 09:07] LABS: Hematocrit 27.1 % (37.0-47.0); Hemoglobin 9.1 g/dL (12.0-16.0); Mean Corp Hgb Conc. 33.6 g/dL (33.0-37.0); Mean Corpuscular Volume 88.3 fL (81.0-99.0); Platelet Count 121 10^3/uL (130-400); Red Cell Dist. Width 13.8 % (11.5-14.5)
[2025-07-21] MEDS: QUESTRAN 4 GRAM PO (09:44)
[2025-07-21 09:53] LABS: Blood Urea Nitrogen 3 mg/dl (7-17); Calcium 8.1 mg/dl (8.4-10.2); Carbon Dioxide 18 mmol/L (22-30); Chloride 115 mmol/L (98-107); Estimated Creatinine Clearance 50 ml/min; Glucose 118 mg/dl (70-99); Magnesium 1.8 mg/dl (1.6-2.3); Potassium 2.9 mmol/L (3.5-5.1); Sodium 139 mmol/L (135-145); eGFR > 60.00
--- NOTE | 2025-07-21 11:27 | W.PN.ONC2 ---
Today's Communication / Plan
-
GI consulted. Supportive care with antidiarrheals. Probable a chemotherapy (irinotecan) related colitis. C-Diff was neg.
If scheduled immodium ineffective, add lomotil 2 Q6
Impression
Impression
Enteritis
Neutropenia resolved
Pancreatic adenocarcinoma stage IV
Chemo-induced anemia
thrombocytopenia improved, chronic thrombocytopenia predates chemotherapy
Status post chemotherapy with FOLFIRINOX
Plan
Plan
Daily CBC, CMP
replete electrolytes, ensure adequate hydration
antidiarrheals with Imodium switched from PRN to scheduled.
continue Creon
treatment will be rescheduled upon D/C
Subjective/Objective
Chief Complaint
ACS Heme Onc
Subjective
Diarrhea Q2-3 hrs after dinner (diet was advanced).
Vital Signs:
Vital Signs
Temp Pulse Resp BP Pulse Ox
98.3 F 78 18 107/66 99
07/21/25 07:00 07/21/25 08:43 07/21/25 07:00 07/21/25 08:43 07/21/25 07:00
Lab Results:
Laboratory Data
WBC 27.6 10^3/uL (4.8-10.8) H 07/21/25 08:48
Hgb 9.1 g/dL (12.0-16.0) L 07/21/25 08:48
Plt Count 121 10^3/uL (130-400) L 07/21/25 08:48
eGFR > 60.00 07/21/25 08:48
[2025-07-21] MEDS: NSS 1000 IV (11:31)
[2025-07-21] MEDS: KCL 270 MEQ IV ×2 (11:42→16:03)
[2025-07-21] MEDS: MAXIPIME 2000 MG IV ×2 (11:49→23:20)
[2025-07-21] MEDS: STERILE WATER FOR INJECTION 10 ML IV ×2 (11:50→23:19)
--- NOTE | 2025-07-21 13:23 | CON.GI ---
Consultation
-
Date/Time Consultation Requested: 07/21/25
Date/Time Consultation Performed: 07/21/25
Requesting Provider: Dr. Anderson
Performing Provider: Dr. De La Rosa
Reason for Consultation: Colitis
Medical History
Chief Complaint / HPI
Chief Complaint: Colitis
History of Present Illness:
Alecia Shelton is a 79 y.o. female with recently diagnosed pancreatic adenocarcinoma w/ liver mets admitted with intractable diarrhea. She was hospitalized at last month with intermittent abdominal pain found to have new pancreatic head mass and
liver lesions s/p IR-guided liver biopsy which confirmed metastatic pancreatic carcinoma. She started treatment 2 weeks ago wtih FOLFIRINOX, reports some constipation, was taking miralax once every other day, however, last Saturday, had cramping
after eating chobani yogurt followed by large soft BM, felt better initially. However, following this, continued to have diarrhea, eventually turned greenish in color, nonbloody, approximately 7x per day, which has persisted since. She initially
tolerated the chemo, did have chemo-induced neutropenia, was given neupogen? now WBC 27.6K. She denies any abddominal pain, nausea, vomiting. She is tolerating a diet without issue. CT scan shows colitis. Imodium was changed to standing instead of
prn this morning, she is also on Creon. No prior colonoscopy, she reports annual (likely FIT) testing with her PCP.
Family history significant for brother with pancreatic cancer. Denies family history of IBD, celiac disease or CRC.
-CT A/P with IV and PO Contrast 07/16/25: Thickening of the wall of the transverse colon, descending colon, sigmoid colon c/w colitis. Sigmoid diverticulosis. Known pancreatic body malignancy slightly increased in size as well as slight increase in
size and probable new small hepatic lesions compatable with malignancy/metastatic disease
Past Medical History
Past Medical History: Other (Pancreatic cancer with liver mets, splenic vein occlusoin, hyperlipidemia, hypertension)
Past Surgical History: None
Social History
Tobacco: Non-Smoker
Alcohol: None
Drug: None
Family History
Family History: Other (Brother-pancreatic cancer)
Allergies / Home Medications
Allergy/AdvReac Type Severity Reaction Status Date / Time
Penicillins Allergy reaction Verified 07/16/25 14:18
when young
�Medication �Instructions �Recorded
atorvastatin 20 mg tablet (Lipitor) 20 mg PO QPM cholesterol 06/09/25
latanoprost 0.005 % eye drops 1 drp BOTH EYES HS Eye Condition 06/09/25
metoprolol succinate 25 mg 25 mg PO DAILY Blood Pressure 06/09/25
tablet,extended release 24 hr
(Toprol XL)
multivitamin with minerals-folic 1 tab PO DAILY Supplement 06/09/25
acid 80 mcg chewable tablet
omeprazole 40 mg capsule,delayed 40 mg PO DAILY Gastrointestinal 06/09/25
release Issue
valsartan 160 mg tablet 80 mg PO BID Blood Pressure 06/09/25
Lactobacil.acidophilus-Bifido.animalis 1 cap PO DAILY Supplement 07/05/25
5 billion cell sprinkle capsule
(Probiotic)
udlma4-nri-nin-other [id number] 1 cap PO DAILY Supplement 07/05/25
oil 350 mg-400 mg capsule
bismuth subsalicylate 525 mg 525 mg PO DAILYPRN PRN GERD 07/16/25
tablet (Pepto-Bismol Ultra)
calcium carbonate (Tums) 200 mg PO BIDPRN PRN GERD 07/16/25
Review of Systems
-
History Source: Patient
All other systems: A 12 pt ROS was Negative except as stated above in HPI
Vital Signs
Temp Pulse Resp BP Pulse Ox
98.3 F 78 18 107/66 99
07/21/25 07:00 07/21/25 08:43 07/21/25 07:00 07/21/25 08:43 07/21/25 07:00
Physical Exam
Exam
General: Well Developed, Well Nourished and No Apparent Distress
GI: Soft, Non Tender, Non Distended and Normal Bowel Sounds
Results
WBC 27.6 10^3/uL (4.8-10.8) H 07/21/25 08:48
Hgb 9.1 g/dL (12.0-16.0) L 07/21/25 08:48
Hct 27.1 % (37.0-47.0) L 07/21/25 08:48
MCV 88.3 fL (81.0-99.0) 07/21/25 08:48
Plt Count 121 10^3/uL (130-400) L 07/21/25 08:48
Absolute Neuts (auto) 2.2 10^3/uL (1.4-6.5) 07/17/25 07:22
Sodium 139 mmol/L (135-145) 07/21/25 08:48
Potassium 2.9 mmol/L (3.5-5.1) L 07/21/25 08:48
Chloride 115 mmol/L (98-107) H 07/21/25 08:48
Carbon Dioxide 18 mmol/L (22-30) L 07/21/25 08:48
BUN 3 mg/dl (7-17) L 07/21/25 08:48
Creatinine 0.7 mg/dL (0.6-1.0) 07/21/25 08:48
Calcium 8.1 mg/dl (8.4-10.2) L 07/21/25 08:48
Total Bilirubin 0.4 mg/dl (0.2-1.3) 07/17/25 07:22
AST 18 U/L (14-36) 07/17/25 07:22
ALT 17 U/L (0-35) 07/17/25 07:22
Alkaline Phosphatase 86 U/L (38-126) 07/17/25 07:22
Lipase 12 U/L (23-300) L 07/16/25 15:24
Diagnostic Image Results:
Prior GI Procedures:
EGD:
Colonoscopy:
Assessment / Plan
-
79 y.o. with newly diagnosed pancreatic adeno with liver mets s/p 1st treatment with FOLFIRINOX 2 weeks ago admitted with intractable diarrhea and findings of colitis.
Loperamide 2mg on 07/17, 4mg on 07/18, 8 mg on 07/19, 4 mg on 07/20
Cholestyramine 4gm started 07/19
Lomotil started 07/20
Creon started 07/18
Symptoms started following induction dose of chemotherapy, highly-suspicious for chemotherapy related colitis, delayed reaction. Diarrhea refractory to creon, cholestyramine and loperamide, though, loperamide just changed to scheduled this morning.
No prior colonoscopy.
Would favor observation over next 24 hours with standing Imodium to see if her symptoms are better controlled. That said, given she is immunocompromised, recommend endoscopic evaluation to rule out CMV. Ideally, she would have a fully colonoscopy as
she has never had one, however, this is for purely diagnostic reasons, not for CRC screening and she also is declining a full colonoscopy, as she states she is unable to prep. She is agreeable to a more limited flexible sigmoidoscopy, as depending
on how she responds to standing loperamide, she may require high-dose steroids.
-NPO PMN for flex sig tomorrow
-will place order for enemas
Data Reviewed
-
CT Scan: Report Reviewed by me
Old Records: Reviewed
-
-
Thank you for consultation and allowing me to participate in the patient's care. Please call the school bus monitor GI physician during the after hours with any questions or concerns.
[2025-07-21 15:00] VITALS: BP 125/67
[2025-07-21] MEDS: LIPITOR 20 MG PO (17:15)
[2025-07-21] MEDS: LOVENOX 40 MG SC (17:15)
[2025-07-21] MEDS: DIOVAN 40 MG PO (20:18)
[2025-07-21] MEDS: XALATAN OPHTHALMIC SOLUTION 1 DROP BOTH EYES (22:10)
[2025-07-21 23:16] VITALS: BP 109/58
[2025-07-21] MEDS: IMODIUM PO ×2 (23:20→23:28)
[2025-07-22] MEDS: NSS 1000 IV (04:00)
[2025-07-22] MEDS: FLAGYL 500 MG IV ×2 (04:00→08:26)
[2025-07-22] MEDS: IMODIUM 2 MG PO ×3 (05:58→23:16)
--- NOTE | 2025-07-22 07:18 | W.PN.HOSP.TC ---
Addendum entered and electronically signed by Viral Anderson MD 07/22/25 14:42:
79-year-old female with abdominal pain diarrhea. She was started on chemotherapy last week. No recent travel or restaurant food. No history of C. difficile. Patient was admitted 06/09/2025 to 06/11/2025 pancreatic mass with liver metastasis
underwent IR biopsy which showed this is pancreatic adenocarcinoma. Follows with Dr. Garcia. Started on chemotherapy last week.
CT abdomen pelvis-thickening of the wall of the transverse colon, descending colon and sigmoid colon likely representing colitis without findings to suggest colonic pneumatosis, intestinal obstruction or free air. Sigmoid diverticulosis. Known
pancreatic body malignancy slightly increased in size and probable new small hepatic lesions compatible with malignancy/metastatic disease.
Awake alert oriented
Cardiovascular system S1-S2 appreciated
Chest clear to auscultation
Abdomen soft and nontender
Mild pedal edema
# Acute colitis/Enteritis due to immunocompromised state from chemotherapy
C. difficile negative, Shigella and Campylobacter is neg. Shiga neg, Norovirus neg, Giardia and Cryptosporidium negative
Will DC cefepime and Flagyl if OK with GI
Imodium scheduled doses, PRN Lomotil added
Continue Questran
Continue Zenpep
Sigmoidoscopy on 07/22/2025-diverticula in the sigmoid colon, semiliquid stool in the rectum and sigmoid colon. Biopsies taken for histology and CMV
# Leukocytosis-secondary to pegfilgrastim patient received on July 09, 2025
# Mild hyponatremia likely secondary to hypovolemia -Improved
# Mild hypokalemia-replace
# Pancytopenia secondary to chemotherapy-on FOLFIRINOX - White count up due to Pegfilgrastim.
# Pancreatic adenocarcinoma with metastasis to liver on chemotherapy- oncology following
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
# Hypertension-valsartan and metoprolol. Hold Valsartan
# Hyperlipidemia-continue statin
# GERD/hiatal hernia-continue PPI
# Glaucoma-continue latanoprost eyedrops
# Sigmoid diverticulosis
# DVT prophylaxis-Lovenox
# Full code.
Part of this note was created using voice recognition system. Occasional wrong word or��sound alike� substitutions may have inadvertently occurred due to the inherent limitations of voice recognition software. If noted kindly bring it to my
attention for correction.
Original Note:
Today's Communication/Plan
-
replete k
flex sig with GI today
Assessment / Plan
Assessment / Plan
79-year-old female with abdominal pain diarrhea. She was started on chemotherapy last week. No recent travel or restaurant food. No history of C. difficile. Patient was admitted 06/09/2025 to 06/11/2025 pancreatic mass with liver metastasis
underwent IR biopsy which showed this is pancreatic adenocarcinoma. Follows with Dr. Garcia. Started on chemotherapy last week.
CT abdomen pelvis-thickening of the wall of the transverse colon, descending colon and sigmoid colon likely representing colitis without findings to suggest colonic pneumatosis, intestinal obstruction or free air. Sigmoid diverticulosis. Known
pancreatic body malignancy slightly increased in size and probable new small hepatic lesions compatible with malignancy/metastatic disease.
# Acute colitis/Enteritis due to immunocompromised state from chemotherapy
C. difficile negative, Shigella and Campylobacter is neg. Shiga neg, Norovirus neg, Giardia and Cryptosporidium negative
Continue cefepime and Flagyl for now
IV fluids support
as needed Lomotil; scheduled Imodium
Continue Questran
GI following; plan for flex sig today
# Leukocytosis-secondary to pegfilgrastim patient received on July 09, 2025
# Mild hyponatremia likely secondary to hypovolemia -Improved
# hypokalemia-replete
# Pancytopenia secondary to chemotherapy-on FOLFIRINOX -monitor counts; hb is 8.4 today
# Pancreatic adenocarcinoma with metastasis to liver on chemotherapy- oncology following
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
# Hypertension-valsartan and metoprolol
# Hyperlipidemia-continue statin
# GERD/hiatal hernia-continue PPI
# Glaucoma-continue latanoprost eyedrops
# Sigmoid diverticulosis
# DVT prophylaxis-Lovenox
# Full code.
Anticipated Discharge: 24 - 48 hours
Subjective/Interval History
-
Date of Service: July 22, 2025
AFVSS. ongoing +diarrhea
Objective Data
-
Labs:
Laboratory Results
07/22/25
06:00
WBC Pending
Hgb Pending
Hct Pending
Plt Count Pending
Sodium Pending
Potassium Pending
Chloride Pending
Carbon Dioxide Pending
BUN Pending
Creatinine Pending
Glucose Pending
Calcium Pending
Vital Signs:
Vital Signs
Temp Pulse Resp BP Pulse Ox
99 F 84 16 109/58 96
07/21/25 23:16 07/21/25 23:16 07/21/25 23:16 07/21/25 23:16 07/21/25 23:16
I&O
07/21/25 07/22/25 07/23/25
06:59 06:59 06:59
Intake Total 1040 / 1040 1320 / 1320
Balance 1040 / 1040 1320 / 1320
Review of Systems
-
History Source: Patient
Abdomen/GI: Reports Abdominal Pain and Diarrhea
Physical Exam
-
General: No Apparent Distress
Respiratory: Clear to Auscultation
Cardiac: Regular Rhythm
GI: Soft, Nontender and Nondistended
Skin: Warm
Neuro: Awake, Alert and Oriented
Psych: Calm
Data Reviewed
-
Labs: Labs Reviewed by me, Discussed with Physician and Discussed with Patient
[2025-07-22 07:30] VITALS: BP 112/57
[2025-07-22] MEDS: ZENPEP DELAYED RELEASE CAPSULE PO ×2 (08:10→13:16)
[2025-07-22] MEDS: QUESTRAN PO (08:10)
[2025-07-22] MEDS: THERAGRAN PO (08:11)
[2025-07-22] MEDS: PROTONIX PO (08:11)
[2025-07-22] MEDS: VISBIOME PO (08:11)
[2025-07-22] MEDS: DIOVAN PO (08:11)
[2025-07-22] MEDS: TOPROL XL PO (08:12)
[2025-07-22] MEDS: FLAGYL 500 MG 100 IV ×3 (08:15→23:16)
[2025-07-22 08:47] LABS: Hematocrit 24.9 % (37.0-47.0); Hemoglobin 8.4 g/dL (12.0-16.0); Mean Corp Hgb Conc. 33.7 g/dL (33.0-37.0); Mean Corpuscular Volume 88.6 fL (81.0-99.0); Platelet Count 111 10^3/uL (130-400); Red Cell Dist. Width 14.0 % (11.5-14.5)
[2025-07-22 09:35] LABS: Blood Urea Nitrogen 4 mg/dl (7-17); Calcium 7.8 mg/dl (8.4-10.2); Carbon Dioxide 20 mmol/L (22-30); Chloride 116 mmol/L (98-107); Estimated Creatinine Clearance 50 ml/min; Glucose 93 mg/dl (70-99); Potassium 3.2 mmol/L (3.5-5.1); Sodium 138 mmol/L (135-145); eGFR > 60.00
--- NOTE | 2025-07-22 09:44 | W.PN.ONC2 ---
Today's Communication / Plan
-
.
Impression
Impression
Enteritis
Neutropenia resolved
Pancreatic adenocarcinoma stage IV
Chemo-induced anemia
thrombocytopenia improved, chronic thrombocytopenia predates chemotherapy
Status post chemotherapy with FOLFIRINOX
Plan
Plan
Daily CBC, CMP
replete electrolytes, ensure adequate hydration
antidiarrheals
continue Creon
flex sig planned -appreciate GI assist
treatment will be rescheduled upon D/C
Subjective/Objective
Subjective
using cholestyramine, Lomotil, loperamide, pancrelipase for diarrhea
ab cramping this morning
Vital Signs:
Vital Signs
Temp Pulse Resp BP Pulse Ox
98.3 F 75 16 112/57 98
07/22/25 07:30 07/22/25 07:30 07/22/25 07:30 07/22/25 07:30 07/22/25 07:30
Lab Results:
Laboratory Data
WBC 22.9 10^3/uL (4.8-10.8) H 07/22/25 07:49
Hgb 8.4 g/dL (12.0-16.0) L 07/22/25 07:49
Plt Count 111 10^3/uL (130-400) L 07/22/25 07:49
eGFR > 60.00 07/22/25 07:49
Physical Exam
HEENT: Moist Mucous Membranes; No Jaundice
Pulmonary: Other (unlabored)
Rectal: Brown
Extremities: Pulses Present; No Edema
Neuro: Non Focal
[2025-07-22] MEDS: KCL 270 MEQ IV (11:23)
[2025-07-22] MEDS: IMODIUM PO (13:16)
--- NOTE | 2025-07-22 13:25 | CM ---
CM reviewed chart, care ongoing.
Patient for flex sig today with GI.
CM will continue to follow for all d/c planning needs.
Plan; home no needs anticipated
[2025-07-22 13:40] LABS: Magnesium 1.8 mg/dl (1.6-2.3)
[2025-07-22 13:46] VITALS: BP 110/51; BP_SYST 12
[2025-07-22 14:01] VITALS: BP 106/49; BP_SYST 14
[2025-07-22 14:16] VITALS: BP 109/51; BP_SYST 12
[2025-07-22] MEDS: MAXIPIME 2000 MG IV ×2 (14:47→23:16)
[2025-07-22] MEDS: STERILE WATER FOR INJECTION 10 ML IV ×2 (14:48→23:16)
[2025-07-22 15:30] VITALS: BP 124/69
[2025-07-22] MEDS: ZENPEP DELAYED RELEASE CAPSULE 1 CAPSULE PO ×2 (17:47→21:58)
[2025-07-22] MEDS: LOVENOX 40 MG SC (17:47)
[2025-07-22] MEDS: LIPITOR 20 MG PO (17:47)
[2025-07-22] MEDS: XALATAN OPHTHALMIC SOLUTION 1 DROP BOTH EYES (21:58)
[2025-07-22 23:55] VITALS: BP 132/63
[2025-07-23] MEDS: IMODIUM 2 MG PO (05:58)
[2025-07-23 07:00] VITALS: BP 124/57
[2025-07-23 07:13] LABS: Hematocrit 26.2 % (37.0-47.0); Hemoglobin 8.6 g/dL (12.0-16.0); Mean Corp Hgb Conc. 32.8 g/dL (33.0-37.0); Mean Corpuscular Volume 92.9 fL (81.0-99.0); Platelet Count 101 10^3/uL (130-400); Red Cell Dist. Width 14.1 % (11.5-14.5)
[2025-07-23] MEDS: ZENPEP DELAYED RELEASE CAPSULE 1 CAPSULE PO ×4 (07:24→22:11)
[2025-07-23] MEDS: PROTONIX 40 MG PO (07:24)
[2025-07-23] MEDS: FLAGYL 500 MG 100 IV (07:25)
[2025-07-23] MEDS: VISBIOME 1 CAP PO (07:27)
[2025-07-23] MEDS: THERAGRAN 1 TABLET PO (07:27)
[2025-07-23] MEDS: TOPROL XL 25 MG PO (07:28)
[2025-07-23] MEDS: QUESTRAN PO (07:28)
[2025-07-23 07:47] LABS: Blood Urea Nitrogen 5 mg/dl (7-17); Calcium 7.8 mg/dl (8.4-10.2); Carbon Dioxide 22 mmol/L (22-30); Chloride 113 mmol/L (98-107); Estimated Creatinine Clearance 50 ml/min; Glucose 87 mg/dl (70-99); Potassium 3.2 mmol/L (3.5-5.1); Sodium 139 mmol/L (135-145); eGFR > 60.00
[2025-07-23] MEDS: KCL 270 MEQ IV (09:05)
[2025-07-23] MEDS: KCL 40 MEQ PO (09:05)
--- NOTE | 2025-07-23 09:14 | W.PN.ONC2 ---
Today's Communication / Plan
-
.
Impression
Impression
Enteritis
Neutropenia resolved
Pancreatic adenocarcinoma stage IV
Chemo-induced anemia
thrombocytopenia improved, chronic thrombocytopenia predates chemotherapy
Status post chemotherapy with FOLFIRINOX
malnutrition
Plan
Plan
Daily CBC, CMP
replete electrolytes, ensure adequate hydration, nutrition following
antidiarrheals
continue Creon
f/u flex sig biopsy results
on abx per GI, primary service
Will evaluate DPYD or consider change to gemcitabine and Abraxane in outpatient follow-up with Dr Garcia
Subjective/Objective
Subjective
Has used 6mg Imodium/24hours and continues on pancrelipase but did not use any cholestyramine or lomotil in the past 24 hours
NO BM since around 11pm last evening
afebrile, no hypoxia or hypotension
ambulating independently
Vital Signs:
Vital Signs
Temp Pulse Resp BP Pulse Ox
98.0 F 89 16 124/57 97
07/23/25 07:00 07/23/25 07:00 07/23/25 07:00 07/23/25 07:00 07/23/25 07:00
Lab Results:
Laboratory Data
WBC 33.3 10^3/uL (4.8-10.8) H 07/23/25 06:47
Hgb 8.6 g/dL (12.0-16.0) L 07/23/25 06:47
Plt Count 101 10^3/uL (130-400) L 07/23/25 06:47
eGFR > 60.00 07/23/25 06:47
Physical Exam
HEENT: Moist Mucous Membranes; No Jaundice
Pulmonary: Other (unlabored)
Rectal: Brown
Extremities: Pulses Present; No Edema
Neuro: Non Focal
--- NOTE | 2025-07-23 09:23 | W.PN.GI.CBS2 ---
Addendum entered and electronically signed by Tc Kay MD 07/23/25 12:56:
I saw and examined the patient.
The PA's note was reviewed and I agree with the note.
Comment:
S/p flx sig w/ bx yesterday. Diarrhea improving. Tolerating diet. Follow path results.
Original Note:
Today's Communication / Plan
-
S/p flex as noted bx pending
pt feeling better today no stools since last PM
will increased to low residue/low lactulose diet
will decrease Imodium to BID and hold if diarrhea improved, lomotil remains PRN
cont Questran if continued improved consider stopping
reviewed wtih Dr. Galloway ok to stop antibiotics and monitor
cont panc enzymes Creon started 07/18
trend CBC
oncology input appreciate
Assessment / Plan
-
79 y.o. with newly diagnosed pancreatic adeno with liver mets s/p 1st treatment with FOLFIRINOX 2 weeks ago admitted with intractable diarrhea and findings of colitis, stool studies neg
07/22/25 colonoscopy fair prep, diverticulosis, stool in rectum and sigmoid, bx taken and pending
diarrhea with concern for chemo related vs other
CT with thickening of transverse.descending and sigmoid
current chemo for pancreatic adeno CA with mets
leukocytosis
neuropenia resolved
PLAN:
S/p flex as noted bx pending
pt feeling better today no stools since last PM
will increased to low residue/low lactulose diet
will decrease Imodium to BID and hold if diarrhea improved, lomotil remains PRN
cont Questran if continued improved consider stopping
reviewed wtih Dr. Galloway ok to stop antibiotics and monitor
cont panc enzymes Creon started 07/18
trend CBC
oncology input appreciate
Subjective
Subjective
Date of Service: July 23, 2025
07/22 brown stools on clear diet -- diarrhea much improved last stool 1045 PM last night, no abdominal pain
Objective
Data Reviewed
Laboratory Data:
Laboratory Results
07/23/25 06:47
07/23/25 06:47
Laboratory Results
Magnesium 1.8 mg/dl (1.6-2.3) 07/22/25 07:49
Total Bilirubin 0.4 mg/dl (0.2-1.3) 07/17/25 07:22
AST 18 U/L (14-36) 07/17/25 07:22
ALT 17 U/L (0-35) 07/17/25 07:22
Alkaline Phosphatase 86 U/L (38-126) 07/17/25 07:22
Lipase 12 U/L (23-300) L 07/16/25 15:24
Vital Signs and I&O:
Vital Signs
Temp Pulse Resp BP Pulse Ox
98.0 F 89 16 124/57 97
07/23/25 07:00 07/23/25 07:00 07/23/25 07:00 07/23/25 07:00 07/23/25 07:00
I&O
07/22/25 07/23/25 07/24/25
06:59 06:59 06:59
Intake Total 1320 / 1320
Balance 1320 / 1320
Physical Exam
Physical Exam
HEENT: Anicteric and Moist mucous membranes
Cardiology: Normal Sinus Rhythm
Pulmonary: Clear
GI: Soft, Non Distended and Non Tender
Extremities: No Edema
Neuro: Non Focal
[2025-07-23 09:28] LABS: Magnesium 1.9 mg/dl (1.6-2.3)
--- NOTE | 2025-07-23 11:47 | CM ---
Chart reviewed and patient's plan is to return to home no needs when stable.
Plan; Home no needs.
--- NOTE | 2025-07-23 11:51 | W.PN.HOSP.TC ---
Today's Communication/Plan
-
No diarrhea since last night
Decrease Imodium
Stop Antibiotics
No IVF
Assessment / Plan
Assessment / Plan
79-year-old female with abdominal pain diarrhea. She was started on chemotherapy last week. No recent travel or restaurant food. No history of C. difficile. Patient was admitted 06/09/2025 to 06/11/2025 pancreatic mass with liver metastasis
underwent IR biopsy which showed this is pancreatic adenocarcinoma. Follows with Dr. Garcia. Started on chemotherapy last week.
CT abdomen pelvis-thickening of the wall of the transverse colon, descending colon and sigmoid colon likely representing colitis without findings to suggest colonic pneumatosis, intestinal obstruction or free air. Sigmoid diverticulosis. Known
pancreatic body malignancy slightly increased in size and probable new small hepatic lesions compatible with malignancy/metastatic disease.
Awake alert oriented
Cardiovascular system S1-S2 appreciated
Chest clear to auscultation
Abdomen soft and nontender
Mild pedal edema
# Acute colitis/Enteritis due to immunocompromised state from chemotherapy
C. difficile negative, Shigella and Campylobacter is neg. Shiga neg, Norovirus neg, Giardia and Cryptosporidium negative
Will DC cefepime and Flagyl - Discussed with with GI
Imodium scheduled doses decreased, PRN Lomotil
Continue Questran for now
Continue Zenpep
Sigmoidoscopy on 07/22/2025-diverticula in the sigmoid colon, semiliquid stool in the rectum and sigmoid colon. Biopsies taken for histology and CMV
# Leukocytosis-secondary to pegfilgrastim patient received on July 09, 2025
# Mild hyponatremia likely secondary to hypovolemia -Improved
# Mild hypokalemia-replace
# Pancytopenia secondary to chemotherapy-on FOLFIRINOX - White count up due to Pegfilgrastim.
# Pancreatic adenocarcinoma with metastasis to liver on chemotherapy- oncology following
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
# Hypertension-valsartan and metoprolol. Hold Valsartan
# Hyperlipidemia-continue statin
# GERD/hiatal hernia-continue PPI
# Glaucoma-continue latanoprost eyedrops
# Sigmoid diverticulosis
# DVT prophylaxis-Lovenox
# Full code.
D/W GI
Part of this note was created using voice recognition system. Occasional wrong word or��sound alike� substitutions may have inadvertently occurred due to the inherent limitations of voice recognition software. If noted kindly bring it to my
attention for correction.
Anticipated Discharge: 24 - 48 hours
Subjective/Interval History
-
Date of Service: July 23, 2025
Objective Data
-
Labs:
Laboratory Results
07/23/25
06:47
WBC 33.3 H
Hgb 8.6 L
Hct 26.2 L
Plt Count 101 L
Sodium 139
Potassium 3.2 L
Chloride 113 H
Carbon Dioxide 22
BUN 5 L
Creatinine 0.7
Glucose 87
Calcium 7.8 L
Vital Signs:
Vital Signs
Temp Pulse Resp BP Pulse Ox
98.0 F 89 16 124/57 98
07/23/25 07:00 07/23/25 07:00 07/23/25 07:00 07/23/25 07:00 07/23/25 07:25
I&O
07/22/25 07/23/25 07/24/25
06:59 06:59 06:59
Intake Total 1320 / 1320
Balance 1320 / 1320
[2025-07-23 15:00] VITALS: BP 135/72
[2025-07-23] MEDS: LIPITOR 20 MG PO (16:38)
[2025-07-23] MEDS: LOVENOX 40 MG SC (16:38)
[2025-07-23] MEDS: XALATAN OPHTHALMIC SOLUTION 1 DROP BOTH EYES (22:11)
[2025-07-23 23:00] VITALS: BP 126/66
[2025-07-24 06:53] LABS: Hematocrit 25.1 % (37.0-47.0); Hemoglobin 8.4 g/dL (12.0-16.0); Mean Corp Hgb Conc. 33.5 g/dL (33.0-37.0); Mean Corpuscular Volume 87.8 fL (81.0-99.0); Platelet Count 104 10^3/uL (130-400); Red Cell Dist. Width 14.1 % (11.5-14.5)
[2025-07-24 07:00] VITALS: BP 126/61
[2025-07-24 07:10] LABS: Blood Urea Nitrogen 5 mg/dl (7-17); Calcium 8.0 mg/dl (8.4-10.2); Carbon Dioxide 24 mmol/L (22-30); Chloride 112 mmol/L (98-107); Estimated Creatinine Clearance 50 ml/min; Glucose 100 mg/dl (70-99); Potassium 3.3 mmol/L (3.5-5.1); Sodium 138 mmol/L (135-145); eGFR > 60.00
[2025-07-24] MEDS: ZENPEP DELAYED RELEASE CAPSULE 1 CAPSULE PO ×4 (09:23→22:30)
[2025-07-24] MEDS: PROTONIX 40 MG PO (09:24)
[2025-07-24] MEDS: TOPROL XL 25 MG PO (09:24)
[2025-07-24] MEDS: QUESTRAN 4 GRAM PO (09:24)
[2025-07-24] MEDS: VISBIOME 1 CAP PO (09:24)
[2025-07-24] MEDS: THERAGRAN 1 TABLET PO (09:24)
[2025-07-24] MEDS: KCL 40 MEQ PO (09:29)
[2025-07-24 11:00] LABS: Nucleated Red Blood Cells % 0.7 %
--- NOTE | 2025-07-24 11:41 | W.PN.ONC2 ---
Today's Communication / Plan
-
- diarrhea improved/ resolved.
- ADAT.
- Ok for d/c 07/25 from onc standpoint if no return of diarrhea, tolerating diet and PO hydration.
Impression
Impression
Enteritis
Neutropenia resolved
Pancreatic adenocarcinoma stage IV
Chemo-induced anemia
thrombocytopenia improved, chronic thrombocytopenia predates chemotherapy
Status post chemotherapy with FOLFIRINOX
malnutrition
Plan
Plan
Daily CBC, CMP
replete electrolytes, ensure adequate hydration, nutrition following
diarrhea improved/resolved without watery stool since evening of 07/22. de-escalating anti-diarrheals per GI recs.
continue Creon
f/u flex sig biopsy results
abx now stopped. afebrile. WBC now down trending after rebound leukocytosis likely from G-CSF.
Will evaluate DPYD or consider change to gemcitabine and Abraxane in outpatient follow-up with Dr Garcia
Subjective/Objective
Chief Complaint
enteritis, chemo induced. pancreatic cancer
Subjective
pt has not had watery bowel movement in ~ 36 hours, no formed stool either. She had bout of abdominal cramping however did not result in diarrhea. She is slowly advancing diet, notes getting full easily. no nausea or vomiting.
Vital Signs:
Vital Signs
Temp Pulse Resp BP Pulse Ox
98.0 F 80 18 126/61 96
07/24/25 07:00 07/24/25 07:00 07/24/25 07:00 07/24/25 07:00 07/24/25 07:00
Lab Results:
Laboratory Data
WBC 23.8 10^3/uL (4.8-10.8) H 07/24/25 06:20
Hgb 8.4 g/dL (12.0-16.0) L 07/24/25 06:20
Plt Count 104 10^3/uL (130-400) L 07/24/25 06:20
eGFR > 60.00 07/24/25 06:20
Physical Exam
HEENT: Moist Mucous Membranes; No Jaundice
Cardiology: Normal Sinus Rhythm
Pulmonary: Clear
GI: Soft and Normal Bowel Sounds; No Distended
Extremities: No Edema
Neuro: Non Focal
Review of Systems
Review of Systems
Constitutional: Reports Fatigue; Denies Fever
Respiratory: Denies Dyspnea or Cough
Cardiovascular: Denies Chest Pain
Gastrointestinal: Denies Nausea/Vomiting or Diarrhea
Neurological: Denies Headache
--- NOTE | 2025-07-24 13:54 | W.PN.GI.CBS2 ---
Today's Communication / Plan
-
GI s/o
Assessment / Plan
-
79 y.o. with newly diagnosed pancreatic adeno with liver mets s/p 1st treatment with FOLFIRINOX 2 weeks ago admitted with intractable diarrhea and findings of colitis, stool studies neg
07/22/25 colonoscopy fair prep, diverticulosis, stool in rectum and sigmoid, bx taken and pending
diarrhea with concern for chemo related vs other
CT with thickening of transverse.descending and sigmoid
current chemo for pancreatic adeno CA with mets
leukocytosis
neuropenia resolved
Her diarrhea is improving. Tolerating diet. GI s/o, call with questions.
Total Time Spent with Patient (in minutes): 35
Subjective
Subjective
Date of Service: July 24, 2025
diarrhea improving
Objective
Data Reviewed
Laboratory Data:
Laboratory Results
07/24/25 06:20
07/24/25 06:20
Laboratory Results
Magnesium 1.9 mg/dl (1.6-2.3) 07/23/25 06:47
Total Bilirubin 0.4 mg/dl (0.2-1.3) 07/17/25 07:22
AST 18 U/L (14-36) 07/17/25 07:22
ALT 17 U/L (0-35) 07/17/25 07:22
Alkaline Phosphatase 86 U/L (38-126) 07/17/25 07:22
Lipase 12 U/L (23-300) L 07/16/25 15:24
Vital Signs and I&O:
Vital Signs
Temp Pulse Resp BP Pulse Ox
98.0 F 80 18 126/61 96
07/24/25 07:00 07/24/25 07:00 07/24/25 07:00 07/24/25 07:00 07/24/25 07:00
I&O
07/23/25 07/24/25 07/25/25
06:59 06:59 06:59
Intake Total 720 / 720
Balance 720 / 720
--- NOTE | 2025-07-24 14:44 | W.PN.HOSP.TC ---
Today's Communication/Plan
-
Doing much better had a soft bowel movement no diarrhea
Change Imodium to as needed
If patient is doing well we will discharge tomorrow
Assessment / Plan
Assessment / Plan
79-year-old female with abdominal pain diarrhea. She was started on chemotherapy last week. No recent travel or restaurant food. No history of C. difficile. Patient was admitted 06/09/2025 to 06/11/2025 pancreatic mass with liver metastasis
underwent IR biopsy which showed this is pancreatic adenocarcinoma. Follows with Dr. Garcia. Started on chemotherapy last week.
CT abdomen pelvis-thickening of the wall of the transverse colon, descending colon and sigmoid colon likely representing colitis without findings to suggest colonic pneumatosis, intestinal obstruction or free air. Sigmoid diverticulosis. Known
pancreatic body malignancy slightly increased in size and probable new small hepatic lesions compatible with malignancy/metastatic disease.
Awake alert oriented
Cardiovascular system S1-S2 appreciated
Chest clear to auscultation
Abdomen soft and nontender
Mild pedal edema
# Acute colitis/Enteritis due to immunocompromised state from chemotherapy
C. difficile negative, Shigella and Campylobacter is neg. Shiga neg, Norovirus neg, Giardia and Cryptosporidium negative
Antibiotics were discontinued on 07/23/2025
Imodium scheduled doses decreased patient did not want to take today therefore changed to as needed, PRN Lomotil
Discontinued Questran
Continue Zenpep
Sigmoidoscopy on 07/22/2025-diverticula in the sigmoid colon, semiliquid stool in the rectum and sigmoid colon. Biopsies taken for histology and CMV
# Leukocytosis-secondary to pegfilgrastim patient received on July 09, 2025
# Mild hyponatremia likely secondary to hypovolemia -Improved
# Mild hypokalemia-replace
# Pancytopenia secondary to chemotherapy-on FOLFIRINOX - White count up due to Pegfilgrastim.
# Pancreatic adenocarcinoma with metastasis to liver on chemotherapy- oncology following
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
# Hypertension-valsartan and metoprolol. Hold Valsartan
# Hyperlipidemia-continue statin
# GERD/hiatal hernia-continue PPI
# Glaucoma-continue latanoprost eyedrops
# Sigmoid diverticulosis
# DVT prophylaxis-Lovenox
# Full code.
Part of this note was created using voice recognition system. Occasional wrong word or��sound alike� substitutions may have inadvertently occurred due to the inherent limitations of voice recognition software. If noted kindly bring it to my
attention for correction.
Anticipated Discharge: Within 24 hours
Subjective/Interval History
-
Date of Service: July 24, 2025
Objective Data
-
Labs:
Laboratory Results
07/24/25
06:20
WBC 23.8 H
Hgb 8.4 L
Hct 25.1 L
Plt Count 104 L
Sodium 138
Potassium 3.3 L
Chloride 112 H
Carbon Dioxide 24
BUN 5 L
Creatinine 0.7
Glucose 100 H
Calcium 8.0 L
Vital Signs:
Vital Signs
Temp Pulse Resp BP Pulse Ox
98.0 F 80 18 126/61 96
07/24/25 07:00 07/24/25 07:00 07/24/25 07:00 07/24/25 07:00 07/24/25 07:00
I&O
07/23/25 07/24/25 07/25/25
06:59 06:59 06:59
Intake Total 720 / 720
Balance 720 / 720
[2025-07-24 15:00] VITALS: BP 125/63
[2025-07-24] MEDS: LIPITOR 20 MG PO (17:22)
[2025-07-24] MEDS: LOVENOX 40 MG SC (17:23)
--- NOTE | 2025-07-24 19:12 | PTCARENOTE ---
Pt with one loose stool and one soft stool. May take immodium this evening, will let RN nightshift know is she decided. Call larkin is within reach, pt rings mouna. will cont to monitor
[2025-07-24] MEDS: XALATAN OPHTHALMIC SOLUTION 1 DROP BOTH EYES (22:30)
[2025-07-24 23:00] VITALS: BP 150/64
[2025-07-25 07:40] VITALS: BP 125/64
[2025-07-25] MEDS: TOPROL XL 25 MG PO (08:12)
[2025-07-25] MEDS: ZENPEP DELAYED RELEASE CAPSULE 1 CAPSULE PO ×4 (08:12→21:24)
[2025-07-25] MEDS: VISBIOME 1 CAP PO (08:20)
[2025-07-25] MEDS: PROTONIX 40 MG PO (08:20)
[2025-07-25] MEDS: THERAGRAN 1 TABLET PO (08:20)
[2025-07-25 09:38] LABS: Blood Urea Nitrogen 6 mg/dl (7-17); Calcium 8.3 mg/dl (8.4-10.2); Carbon Dioxide 29 mmol/L (22-30); Chloride 108 mmol/L (98-107); Estimated Creatinine Clearance 58 ml/min; Glucose 127 mg/dl (70-99); Potassium 3.7 mmol/L (3.5-5.1); Sodium 141 mmol/L (135-145); eGFR > 60.00
--- NOTE | 2025-07-25 11:29 | W.PN.ONC2 ---
Today's Communication / Plan
-
- continue to ADAT
- apprec GI recs.
- onc follow up on discharge.
Impression
Impression
Enteritis
Neutropenia resolved
Pancreatic adenocarcinoma stage IV
Chemo-induced anemia
thrombocytopenia improved, chronic thrombocytopenia predates chemotherapy
Status post chemotherapy with FOLFIRINOX
malnutrition
Plan
Plan
Daily CBC, CMP
replete electrolytes, ensure adequate hydration, nutrition following
diarrhea improved however had return of cramping overnight with looser bowel movement. holding off on anti-diarrheals though with decreased stool frequency.
continue Creon
f/u flex sig biopsy results
abx now stopped. afebrile. WBC was down trending after rebound leukocytosis likely from G-CSF.
Will evaluate DPYD or consider change to gemcitabine and Abraxane in outpatient follow-up with Dr Garcia
Subjective/Objective
Chief Complaint
chemo induced enteritis
Subjective
Alecia had return of cramping overnight after dinner and ultimately had large soft bowel movement, more formed than prior which relieved the cramping. She ate breakfast this am without return of symptoms yet. She had return of nausea when having
cramping. Denies emesis, bloating, fevers.
Vital Signs:
Vital Signs
Temp Pulse Resp BP Pulse Ox
98.8 F 76 16 125/64 97
07/25/25 07:40 07/25/25 08:12 07/25/25 07:40 07/25/25 08:12 07/25/25 08:00
Lab Results:
Laboratory Data
WBC 23.8 10^3/uL (4.8-10.8) H 07/24/25 06:20
Hgb 8.4 g/dL (12.0-16.0) L 07/24/25 06:20
Plt Count 104 10^3/uL (130-400) L 07/24/25 06:20
eGFR > 60.00 07/25/25 09:07
Physical Exam
HEENT: No Jaundice
Cardiology: Normal Sinus Rhythm
Pulmonary: Clear
GI: Soft and Normal Bowel Sounds; No Distended
Extremities: No Edema
Neuro: Non Focal
Review of Systems
Review of Systems
Constitutional: Denies Fever
Respiratory: Denies Dyspnea
Cardiovascular: Denies Chest Pain
Gastrointestinal: Reports Nausea/Vomiting and Diarrhea
Neurological: Denies Headache
--- NOTE | 2025-07-25 14:17 | W.PN.HOSP.TC ---
Today's Communication/Plan
-
If cramps and symptoms improve discharge tomorrow
Assessment / Plan
Assessment / Plan
79-year-old female with abdominal pain diarrhea. She was started on chemotherapy last week. No recent travel or restaurant food. No history of C. difficile. Patient was admitted 06/09/2025 to 06/11/2025 pancreatic mass with liver metastasis
underwent IR biopsy which showed this is pancreatic adenocarcinoma. Follows with Dr. Garcia. Started on chemotherapy last week.
CT abdomen pelvis-thickening of the wall of the transverse colon, descending colon and sigmoid colon likely representing colitis without findings to suggest colonic pneumatosis, intestinal obstruction or free air. Sigmoid diverticulosis. Known
pancreatic body malignancy slightly increased in size and probable new small hepatic lesions compatible with malignancy/metastatic disease.
Couldnt sleep well due to cramps returning. 3 Bms
Awake alert oriented
Cardiovascular system S1-S2 appreciated
Chest clear to auscultation
Abdomen soft and nontender
Mild pedal edema
# Acute colitis/Enteritis due to immunocompromised state from chemotherapy
C. difficile negative, Shigella and Campylobacter is neg. Shiga neg, Norovirus neg, Giardia and Cryptosporidium negative
Antibiotics were discontinued on 07/23/2025
Imodium scheduled doses decreased patient did not want to take today therefore changed to as needed, PRN Lomotil
Discontinued Questran
Continue Zenpep
Sigmoidoscopy on 07/22/2025-diverticula in the sigmoid colon, semiliquid stool in the rectum and sigmoid colon. Biopsies taken for histology and CMV
She had more cramps and stools. Not watery
# Leukocytosis-secondary to pegfilgrastim patient received on July 09, 2025
# Mild hyponatremia likely secondary to hypovolemia -Improved
# Mild hypokalemia-replace
# Pancytopenia secondary to chemotherapy-on FOLFIRINOX - White count up due to Pegfilgrastim.
# Pancreatic adenocarcinoma with metastasis to liver on chemotherapy- oncology following
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
# Hypertension-valsartan and metoprolol. Hold Valsartan
# Hyperlipidemia-continue statin
# GERD/hiatal hernia-continue PPI
# Glaucoma-continue latanoprost eyedrops
# Sigmoid diverticulosis
# DVT prophylaxis-Lovenox
# Full code.
Part of this note was created using voice recognition system. Occasional wrong word or��sound alike� substitutions may have inadvertently occurred due to the inherent limitations of voice recognition software. If noted kindly bring it to my
attention for correction.
Anticipated Discharge: Within 24 hours
Subjective/Interval History
-
Date of Service: July 25, 2025
Objective Data
-
Labs:
Laboratory Results
07/25/25
09:07
Sodium 141
Potassium 3.7
Chloride 108 H
Carbon Dioxide 29
BUN 6 L
Creatinine 0.6
Glucose 127 H
Calcium 8.3 L
Vital Signs:
Vital Signs
Temp Pulse Resp BP Pulse Ox
98.8 F 76 16 125/64 97
07/25/25 07:40 07/25/25 08:12 07/25/25 07:40 07/25/25 08:12 07/25/25 08:00
I&O
07/24/25 07/25/25 07/26/25
06:59 06:59 06:59
Intake Total 720 / 720 660 / 660
Balance 720 / 720 660 / 660
[2025-07-25 15:00] VITALS: BP 147/69
[2025-07-25] MEDS: KCL 40 MEQ PO (16:10)
[2025-07-25] MEDS: LIPITOR 20 MG PO (17:49)
[2025-07-25] MEDS: LOVENOX 40 MG SC (17:49)
[2025-07-25] MEDS: XALATAN OPHTHALMIC SOLUTION 1 DROP BOTH EYES (21:24)
[2025-07-25 22:17] VITALS: BP 134/62
[2025-07-26 07:02] VITALS: BP 116/68
[2025-07-26 08:34] LABS: Hematocrit 28.0 % (37.0-47.0); Hemoglobin 9.0 g/dL (12.0-16.0); Mean Corp Hgb Conc. 32.1 g/dL (33.0-37.0); Mean Corpuscular Volume 94.9 fL (81.0-99.0); Platelet Count 126 10^3/uL (130-400); Red Cell Dist. Width 14.1 % (11.5-14.5)
--- NOTE | 2025-07-26 08:44 | W.PN.ONC2 ---
Today's Communication / Plan
-
Discharge planning
Impression
Impression
Enteritis
Neutropenia resolved
Pancreatic adenocarcinoma stage IV
Chemo-induced anemia
thrombocytopenia improved, chronic thrombocytopenia predates chemotherapy
Status post chemotherapy with FOLFIRINOX
malnutrition
Plan
Plan
Daily CBC, CMP
replete electrolytes, ensure adequate hydration, nutrition following
diarrhea improved however had return of cramping overnight with looser bowel movement. holding off on anti-diarrheals though with decreased stool frequency.
continue Creon
f/u flex sig biopsy results
abx now stopped. afebrile. WBC was down trending after rebound leukocytosis likely from G-CSF.
Will evaluate DPYD or consider change to gemcitabine and Abraxane in outpatient follow-up with Dr Garcia
Subjective/Objective
Subjective
has not taken Imodium since Saturday, Lomotil since Saturday
ab cramping and nausea after meals improved
Formed BM x 2 today
Vital Signs:
Vital Signs
Temp Pulse Resp BP Pulse Ox
98.6 F 75 12 116/68 96
07/26/25 07:02 07/26/25 07:02 07/26/25 07:02 07/26/25 07:02 07/26/25 07:02
Lab Results:
Laboratory Data
WBC 17.1 10^3/uL (4.8-10.8) H 07/26/25 07:04
Hgb 9.0 g/dL (12.0-16.0) L 07/26/25 07:04
Plt Count 126 10^3/uL (130-400) L D 07/26/25 07:04
eGFR > 60.00 07/25/25 09:07
Physical Exam
HEENT: No Jaundice
Cardiology: Normal Sinus Rhythm
Pulmonary: Clear
GI: Soft and Normal Bowel Sounds; No Distended
Extremities: No Edema
Neuro: Non Focal
[2025-07-26] MEDS: VISBIOME 1 CAP PO (08:45)
[2025-07-26] MEDS: TOPROL XL 25 MG PO (08:45)
[2025-07-26] MEDS: PROTONIX 40 MG PO (08:45)
[2025-07-26] MEDS: ZENPEP DELAYED RELEASE CAPSULE 1 CAPSULE PO ×2 (08:45→12:04)
[2025-07-26] MEDS: THERAGRAN 1 TABLET PO (08:45)
[2025-07-26 08:50] LABS: Blood Urea Nitrogen 7 mg/dl (7-17); Calcium 8.3 mg/dl (8.4-10.2); Carbon Dioxide 30 mmol/L (22-30); Chloride 107 mmol/L (98-107); Estimated Creatinine Clearance 58 ml/min; Glucose 95 mg/dl (70-99); Potassium 3.8 mmol/L (3.5-5.1); Sodium 138 mmol/L (135-145); eGFR > 60.00
--- NOTE | 2025-07-26 11:16 | W.PN.HOSP.TC ---
Today's Communication/Plan
-
Use Imodium every 12 hours as needed for loose stools. Imodium does not improve symptoms use Lomotil.
Continue pancrelipase with meals and nightly
Do not take valsartan. Follow-up with family doctor to restart valsartan.
Assessment / Plan
Assessment / Plan
79-year-old female with abdominal pain diarrhea. She was started on chemotherapy last week. No recent travel or restaurant food. No history of C. difficile. Patient was admitted 06/09/2025 to 06/11/2025 pancreatic mass with liver metastasis
underwent IR biopsy which showed this is pancreatic adenocarcinoma. Follows with Dr. Garcia. Started on chemotherapy [address] abdomen pelvis-thickening of the wall of the transverse colon, descending colon and sigmoid colon likely representing colitis without findings to suggest colonic pneumatosis, intestinal obstruction or free air. Sigmoid diverticulosis. Known
pancreatic body malignancy slightly increased in size and probable new small hepatic lesions compatible with malignancy/metastatic disease.
# Acute colitis/Enteritis due to immunocompromised state from chemotherapy
C. difficile negative, Shigella and Campylobacter is neg. Shiga neg, Norovirus neg, Giardia and Cryptosporidium negative
Antibiotics were discontinued on 07/23/2025
Imodium scheduled doses decreased patient did not want to take today therefore changed to as needed, PRN Lomotil
Discontinued Questran
Continue Zenpep
Sigmoidoscopy on 07/22/2025-diverticula in the sigmoid colon, semiliquid stool in the rectum and sigmoid colon.
Sigmoid colon biopsies resulted CMV, lymphocytic, collagenous colitis negative.
# Leukocytosis-secondary to pegfilgrastim patient received on July 09, 2025
# Mild hyponatremia likely secondary to hypovolemia -Improved
# Mild hypokalemia-replace
# Pancytopenia secondary to chemotherapy-on FOLFIRINOX - White count up due to Pegfilgrastim.
# Pancreatic adenocarcinoma with metastasis to liver on chemotherapy- oncology following
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
# Hypertension-valsartan and metoprolol. Hold Valsartan while on discharge. Recommended to follow-up with family doctor to restart valsartan.
# Hyperlipidemia-continue statin
# GERD/hiatal hernia-continue PPI
# Glaucoma-continue latanoprost eyedrops
# Sigmoid diverticulosis
# DVT prophylaxis-Lovenox
# Full code.
Anticipated Discharge: Today
Subjective/Interval History
-
Date of Service: July 26, 2025
On the night the patient had 2 bowel movements with 'orange stool'. She had breakfast and well-tolerated felt good. No concern for nausea, vomiting, constipation, fatigue, abdominal pain, fever.
She feels little wobbly today while on using restroom.
Objective Data
-
Labs:
Laboratory Results
07/26/25
07:04
WBC 17.1 H
Hgb 9.0 L
Hct 28.0 L
Plt Count 126 L D
Sodium 138
Potassium 3.8
Chloride 107
Carbon Dioxide 30
BUN 7
Creatinine 0.6
Glucose 95
Calcium 8.3 L
Vital Signs:
Vital Signs
Temp Pulse Resp BP Pulse Ox
98.6 F 75 12 116/68 96
07/26/25 07:02 07/26/25 08:45 07/26/25 07:02 07/26/25 08:45 07/26/25 07:02
I&O
07/25/25 07/26/25 07/27/25
06:59 06:59 06:59
Intake Total 660 / 660 1320 / 1320
Balance 660 / 660 1320 / 1320
Review of Systems
-
History Source: Patient
All other systems: Reviewed and negative
Physical Exam
-
General: Well Nourished, No Apparent Distress and Comfortable
HEENT: Atraumatic and PERRLA
Respiratory: Clear to Auscultation
Cardiac: Regular Rhythm and S1/S2
GI: Soft, Nontender, Nondistended and Normal Bowel Sounds
Genito-urinary: No Costovertebral Tender
Musculoskeletal: No Clubbing
Skin: Warm
Neuro: AO x 3
Hematologic / Lymphatic: No Lymphadenopathy
Psych: Calm
--- NOTE | 2025-07-26 12:21 | CM ---
CM reviewed chart, patient seen bedside, for d/c today.
Patient denies needs upon d.c
IMM verbally reviewed, provided with copy, placed in chart.
Patient confirms transport home around 3:00 p.m.
CM will continue to follow.
Plan; home no needs.
--- NOTE | 2025-07-26 12:45 | W.PN.UPDATE ---
Update Note
Progress Note Update
Please see resident's progress note for more detail, once available.
I have independently evaluated the patient at the bedside. I have reviewed the case with the resident and agree with documentation unless otherwise specified.
AFVSS. NAEON. WBC continuing to downtrend, hemoglobin uptrending. Platelets improved. States she feels well and denies any complaints
AO x 4, NAD. Benign cardiopulmonary and abdomen exam. No edema or rashes. Palpable pulses. No FND or CN deficits observed
#Colitis/enteritis. Unclear etiology, had colonoscopy with biopsies that did not show any characteristic findings on pathology, CMV testing also negative. Possibly associated with chemotherapy and pancreatic mass with EPI. Status post IV
antibiotics, negative stool cultures. Improved with as needed Imodium and pancrelipase with meals. Continue with Lomotil as needed if Imodium not effective.
#Leukocytosis due to G-CSF administration. White count downtrending towards normal. Remainder of CBC improving as well.
Diet -- LRD
DVT -- SQ Lovenox
CODE -- Full
Dispo -- Home discharge today
[2025-07-26 14:47] VITALS: BP 141/67
--- NOTE | 2025-07-26 14:56 | PTCARENOTE ---
Patient being discharged. Discharge instructions reviewed. All questions and/or concerns addressed. IV removed. All belongings accounted for. Transport called to wheel patient down to [facility] for discharge to home.
--- NOTE | 2025-07-27 13:15 | W.DCSUMMARY ---
Documented by User: Cornelio Cole MD, Resident 07/27/25 13:47
Discharge Summary
Discharge Data
Date of Admission: 07/16/25
Date of Discharge: 07/26/25
-
Pending Results: No
Hospital Course
Discharging Physician : Warren Jiménez D.O
Cornelio Fajardo
Disposition : Home
Primary care physician : Not known
Principal Discharge diagnosis : Colitis secondary to chemotherapy.
Chronic Discharge diagnosis : Pancreatic adenocarcinoma with metastasis to liver on chemotherapy-following up with oncologist Dr. Garcia.
splenic vein occlusion,
hypertension continue metoprolol.
hyperlipidemia-continue statin.
GERD-continue pantoprazole
glaucoma-continue latanoprost eyedrops.
Sigmoid diverticulosis.
Hospital Course :
On 07/16 79-year-old female with past medical history of pancreatic cancer metastasis to liver arrived to ER for abdominal pain, diarrhea, weakness. She was started on chemotherapy a week before the admission. She was initially constipated and
was prescribed MiraLAX, before starting the medication she started to experience cramping followed by a large amount of diarrhea. It was continuous watery diarrhea not associated with fever chills nausea vomiting. While on the course of admission
CT abdomen pelvis was taken showed thickening of the wall of the transverse colon, descending, sigmoid colon likely colitis. Stool studies, C. difficile was ordered. She was started on Flagyl 500 mg, oncologist was consulted. Imodium prescribed
as needed. Questran, Zenpep, probiotics added to the regimen while on the course of hospitalization. GI consulted for colonoscopy the differential diagnosis of viral infection, colitis and C. difficile report was negative. While on the course of
admission diarrhea was improved.
Sigmoidoscopy on 07/22-diverticuli in the sigmoid colon, 7 liquid stool in the rectum and sigmoid colon. Biopsy resulted CMV negative, lymphocytic and collagenous colitis, acute colitis, granulomas and dysplasia negative. Patient was stable around
hospitalization and was discharged on 07/26/25 with Imodium, pancrelipase, Lomotil(if Imodium does not improve her symptoms). Valsartan was held due to low blood pressure and advised to follow-up with family doctor to restart.
IMPORTANT:
If your symptoms worsen when you get home, go to the Emergency Room if you cannot reach a doctor, or call 911
Important imaging findings :
On 07/16 CT abdomen pelvis with IV and oral contrast:
-THICKENING OF THE WALL OF THE TRANSVERSE COLON, DESCENDING COLON AND SIGMOID COLON most likely representing COLITIS without findings to suggest colonic pneumatosis, intestinal -obstruction or free air.
-Sigmoid diverticulosis.
-Known pancreatic body malignancy slightly increased in size as well as slight increase in size and probable new small hepatic lesions compatible with malignancy/metastatic disease.
Procedure findings :
Sigmoidoscopy on 07/22-diverticuli in the sigmoid colon, 7 liquid stool in the rectum and sigmoid colon. Biopsy resulted CMV negative, lymphocytic and collagenous colitis, acute colitis, granulomas and dysplasia negative.
Discharge Plan
-
Patient Disposition: Home (Routine Discharge)
Discharge Diagnosis/Procedures: Acute colitis
Diarrhea
Electrolyte abnormality
Pancreatic adenocarcinoma
Hypertension
Hyperlipidemia
GERD/hiatal hernia
Glaucoma
Diverticulosis
Condition: Fair
Diet: Low Residue
Additional Diets: low lactose
Activity: As tolerated
Driving Restrictions: As prior to admission
Bathing Restrictions: None
Blood Work: BMP and CBC at follow-up with your family doctor
Referrals:
Jina Burleson MD [Active, Gastroenterology]
Alex Garcia, DO [Active, Hematology / Oncology]
UNKNOWN - PT DOES,NOT KNOW [Family Provider]
Additional Discharge Medication Instructions: Use Imodium every 12 hours as needed for loose stools. Imodium does not improve symptoms use Lomotil
Continue pancrelipase with meals and nightly
Do not take valsartan hand until you follow-up with your family doctor in the office
Prescriptions:
New
diphenoxylate-atropine 2.5-0.025 mg Tablet
1 tab PO Q6HPRN PRN (Reason: 2nd line antidiarrheal) 7 Days Qty: 30 0RF
Zenpep 10,000-32,000 -42,000 unit Capsule,Delayed Release(Dr/Ec)
1 cap PO ACHS 30 Days Qty: 120 0RF
Continued
latanoprost 0.005 % Drops
1 drp BOTH EYES HS
atorvastatin [Lipitor] 20 mg Tablet
20 mg PO QPM
omeprazole 40 mg Capsule,Delayed Release(Dr/Ec)
40 mg PO DAILY
metoprolol succinate [Toprol XL] 25 mg Tablet Extended Release 24 Hr
25 mg PO DAILY
multivit with min-folic acid 80 mcg Tablet,Chewable
1 tab PO DAILY
kyjhq-5b-dhk-epa-fish oil 350-400 mg Capsule
1 cap PO DAILY
Probiotic 5 billion cell Capsule, Sprinkle
1 cap PO DAILY
calcium carbonate [Tums] 200 mg calcium (500 mg) Tablet,Chewable
200 mg PO BIDPRN PRN (Reason: GERD)
Pepto-Bismol Ultra 525 mg Tablet
525 mg PO DAILYPRN PRN (Reason: GERD)
loperamide 2 mg Tablet
2 mg PO Q12H PRN (Reason: loose stools)
Held
valsartan 160 mg Tablet
80 mg PO BID
Hold Instructions: Hold until you have a follow-up appointment with your family doctor
Discharge Orders:
Discharge Patient (As Directed); Ordered 07/26/25
Ordered By: Warren Deal
Discharge Date and Time
Discharge Date/Time: 07/26/25 15:13
Print Language: KAZAKH

Documented by User: Warren Deal DO 07/27/25 14:00
Discharge Summary
Discharge Data
Date of Admission: 07/16/25
Date of Discharge: 07/27/25
Total time spent discharging patient (in min): 32
Discharge Plan
-
Patient Disposition: Home (Routine Discharge)
Discharge Diagnosis/Procedures: Acute colitis
Diarrhea
Electrolyte abnormality
Pancreatic adenocarcinoma
Hypertension
Hyperlipidemia
GERD/hiatal hernia
Glaucoma
Diverticulosis
Condition: Fair
Diet: Low Residue
Additional Diets: low lactose
Activity: As tolerated
Driving Restrictions: As prior to admission
Bathing Restrictions: None
Blood Work: BMP and CBC at follow-up with your family doctor
Referrals:
Jina Burleson MD [Active, Gastroenterology]
Alex Garcia DO [Active, Hematology / Oncology]
UNKNOWN - PT DOES,NOT KNOW [Family Provider]
Additional Discharge Medication Instructions: Use Imodium every 12 hours as needed for loose stools. Imodium does not improve symptoms use Lomotil
Continue pancrelipase with meals and nightly
Do not take valsartan hand until you follow-up with your family doctor in the office
Prescriptions:
New
diphenoxylate-atropine 2.5-0.025 mg Tablet
1 tab PO Q6HPRN PRN (Reason: 2nd line antidiarrheal) 7 Days Qty: 30 0RF
Zenpep 10,000-32,000 -42,000 unit Capsule,Delayed Release(Dr/Ec)
1 cap PO ACHS 30 Days Qty: 120 0RF
Continued
latanoprost 0.005 % Drops
1 drp BOTH EYES HS
atorvastatin [Lipitor] 20 mg Tablet
20 mg PO QPM
omeprazole 40 mg Capsule,Delayed Release(Dr/Ec)
40 mg PO DAILY
metoprolol succinate [Toprol XL] 25 mg Tablet Extended Release 24 Hr
25 mg PO DAILY
multivit with min-folic acid 80 mcg Tablet,Chewable
1 tab PO DAILY
pqoka-0h-adp-epa-fish oil 350-400 mg Capsule
1 cap PO DAILY
Probiotic 5 billion cell Capsule, Sprinkle
1 cap PO DAILY
calcium carbonate [Tums] 200 mg calcium (500 mg) Tablet,Chewable
200 mg PO BIDPRN PRN (Reason: GERD)
Pepto-Bismol Ultra 525 mg Tablet
525 mg PO DAILYPRN PRN (Reason: GERD)
loperamide 2 mg Tablet
2 mg PO Q12H PRN (Reason: loose stools)
Held
valsartan 160 mg Tablet
80 mg PO BID
Hold Instructions: Hold until you have a follow-up appointment with your family doctor
Discharge Orders:
Discharge Patient (As Directed); Ordered 07/26/25
Ordered By: Warren Deal
Discharge Date and Time
Discharge Date/Time: 07/26/25 15:13
Print Language: KAZAKH
== END 2025-07-26 15:13 | disposition home or self-care (01) | DRG 391 ==
LOC: 4 WEST ACU 20:32
PROVIDERS: Hospitalist; Internal Medicine; Physician Assistant; ADMITTING PHYSICIAN Hospitalist; ATTENDING PHYSICIAN Internal Medicine; CONSULT PHYSICIAN Internal Medicine Hematology & Oncology; EMERGENCY PHYSICIAN Emergency Medicine; OTHER PHYSICIAN Internal Medicine
PROC: 0DBN8ZX Excision of Sigmoid Colon, Via Natural or Artificial Opening Endoscopic, Diagnostic (ICD-10-PCS; 2025-07-22)
DX: K52.9 Noninfective gastroenteritis and colitis, unspecified (principal); D61.810 Antineoplastic chemotherapy induced pancytopenia; E43 Unspecified severe protein-calorie malnutrition; C25.1 Malignant neoplasm of body of pancreas; C78.7 Secondary malignant neoplasm of liver and intrahepatic bile duct; D84.821 Immunodeficiency due to drugs; T45.1X5A Adverse effect of antineoplastic and immunosuppressive drugs, initial encounter; E78.5 Hyperlipidemia, unspecified; I10 Essential (primary) hypertension; K21.9 Gastro-esophageal reflux disease without esophagitis; K57.30 Diverticulosis of large intestine without perforation or abscess without bleeding; K59.00 Constipation, unspecified; K44.9 Diaphragmatic hernia without obstruction or gangrene; D64.81 Anemia due to antineoplastic chemotherapy; D69.59 Other secondary thrombocytopenia; D70.1 Agranulocytosis secondary to cancer chemotherapy; Z79.899 Other long term (current) drug therapy; Z80.0 Family history of malignant neoplasm of digestive organs; Z85.07 Personal history of malignant neoplasm of pancreas; Z88.0 Allergy status to penicillin; Z68.23 Body mass index [BMI] 23.0-23.9, adult
CPT/HCPCS: 74177; 80048; 80053; 81003; 81015; 82306; 83605; 83690; 83735; 84443; 85025; 85027; 87045; 87046; 87086; 87324; 87328; 87329; 87427; 87449; 87798; 88305; 88342; 96361; 96365; 96375; 99284; Q9967